=== PATIENT | male | born 1995 | race Caucasian/White ===

== ENCOUNTER 2017-01-09 12:53 | Inpatient (IN) | payer OTHER ==
--- NOTE | ~2017-01-09 | CR72 ---
[facility] A Service of [facility] & [facility] RADIOLOGY TEXT RESULTS PATIENT: DICKSON DE JESUS LOCATION: [address] : [birth year] UNIT #: [id number] AGE: [address]: Raymond Cespedes MD SEX: M ORDER DR: [id number] [facility] [address] [facility]. [place], [place] [address] [id number] I MR#: [id number] Acc #: [id number] NAME: DICKSON DE JESUS : 1995 SEX: M STUDY DATE/TIME: 01/10/2017 6:08 UNIT: [facility] ROOM: [facility] STUDY DESCRIPTION: CR Chest Single View Portable Attending Physician: Raymond Cespedes M.D. Ordering Physician: Ivy Interiano M.D. Primary Care Physician: No Primary Care Physician MEDICAL IMAGING REPORT This report is preliminary unless electronic signature is present EXAM Portable chest, 01/10/2017. HISTORY Overdose, respiratory failure, intubated, follow up infiltrates, ventilator management. FINDINGS The cardiac and mediastinal structures are stable compared with 01/09/2017. There has been no change in the position of the life support equipment. There has been an interval decrease in the bilateral infiltrates. There are no pleural effusions. No pneumothorax. IMPRESSION Interval decrease in the bilateral infiltrates compared with 01/09/2017. Dictated by... Zeke Velarde M.D. THIS IS AN ELECTRONICALLY VERIFIED REPORT Zeke Velarde M.D. at 01/11/2017 2:24 PM KRT/shoaib TD: 01/10/2017 11:17 JOB #: [id number] MEDICAL IMAGING REPORT COPY
--- NOTE | ~2017-01-09 | HP ---
Unit #: [id number] #: [id number] Patient: DICKSON DE JESUS [id number] [facility]. [place], [place] [address] [id number] I MR#: [id number] NAME: DICKSON DE JESUS ROOM: [facility] Age: 21 Sex: M Admission Date: 01/09/2017 : 1995 Attending Physician: Georgina Jackson M.D. HISTORY AND PHYSICAL CHIEF COMPLAINT Unresponsive, probable overdose. HISTORY OF PRESENT ILLNESS The patient is a 21-year-old male with a past medical history of asthma and IV drug use who presented to the emergency department for evaluation of the above. History is obtained from chart review and discussion with ER staff, as well as the patient's mother and grandparents who are at the bedside. The patient was last normal around 3 a.m. on the morning of admission. His grandfather thinks he may have heard him talking on the phone around 6. He found him unresponsive at 8:30. EMS was called. Upon arrival of EMS, he was completely unresponsive. He was given 6 mg of Narcan with no response. He was brought to the emergency department for further evaluation. Upon arrival in the emergency department, pulse and blood pressure were 150 and 103/60, respectively. He had decerebrate posturing with fixed pupils. He had no response to pain. He was intubated. Chest x-ray is showing findings concerning for aspiration. Lactic acid is 5.7. He has a creatinine of 1.8. AST and ALT are 61 and 55, respectively. He was given clindamycin in the emergency department, as well as two liters of normal saline. He is being admitted to [facility] for evaluation and further treatment. PAST MEDICAL HISTORY 1. Patient was seen at [facility] approximately one month ago for intentional overdose. He then was an inpatient at [facility]. 2. Asthma requiring hospitalization as a child. PAST SURGICAL HISTORY None. SOCIAL HISTORY The patient lives "wherever." He stays with his grandparents some, and he is at his mom's some. He smokes a half pack of cigarettes daily. He has a history of IV heroin use. 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 He has his GED. He is not currently working. FAMILY HISTORY Notable for both parents being healthy. ALLERGIES Unit #: [id number] #: [id number] Patient: DICKSON DE JESUS. HOME MEDICATIONS None. REVIEW OF SYSTEMS A complete review of systems is unobtainable from the patient due to altered mental status and current intubation. The family states that he had a court date today and had been arguing with his girlfriend. He does have a history of intentional overdose as stated above. PHYSICAL EXAMINATION VITAL SIGNS: Temperature is 101.5, pulse 150, respirations 12, and blood pressure 103/60. GENERAL: Patient is a male who is currently intubated. He is on a Versed drip. HEENT: Head is atraumatic. Mucous membranes are dry. NECK: Supple. Trachea is midline. CARDIOVASCULAR: Tachycardic in the 120s. LUNGS: Scattered rhonchi. ABDOMEN: Soft with bowel sounds present in all four quadrants. EXTREMITIES: No pedal edema. NEUROLOGIC: Patient is completely unresponsive. He initially had decerebrate posturing. He is not responding at all to pain. Pupils are fixed. PSYCHIATRIC: Unable to assess. SKIN: Scattered tattoos. DIAGNOSTIC STUDIES LABORATORY: Comprehensive metabolic panel is notable for bicarb of 21, BUN and creatinine 13 and 1.8, respectively, calcium 8, AST and ALT 61 and 55, respectively, alkaline phosphatase 105, and magnesium is 2. CK is 150. Alcohol is less than 5. Troponin is 0.18. Lactic acid 5.7. INR is 1.2. BNP 36. Complete blood count notable for a white blood cell count of 12.3. Urinalysis is notable for 3+ protein, glucose 100, and blood 1+, with 2-5 red blood cells, 10-25 white blood cells, and 1+ bacteria. IMAGING: Chest x-ray shows extensive alveolar and interstitial infiltrates. CT of the head shows nothing acute. CARDIOLOGY: EKG shows sinus tachycardia with short P-R interval and a rate of 170 beats per minute. ASSESSMENT The patient is a 21-year-old male with: 1. Heroin overdose, unknown intent. 2. Acute respiratory failure. 3. Aspiration pneumonia. The patient received clindamycin in the emergency department. 4. Sepsis. 5. Urinary tract infection. 6. Acute kidney injury. The patient's creatinine was 0.9 on June 08, 2015. It is 1.8 today. 7. Transaminitis. 8. History of asthma. 9. IV drug use. 10. Tobacco abuse. Unit #: [id number] #: [id number] Patient: DICKSON DE JESUS PLAN 1. Admit to ICU. 2. N.p.o. 3. Normal saline at 150 mL/hour. 4. Consult Dr. Interiano regarding ICU admission and vent management. 5. Blood cultures x2. 6. Sputum culture and sensitivity. 7. Procalcitonin level. 8. Clindamycin IV pending further workup. 9. DuoNebs. 10. Sepsis protocol with repeat lactic acid. 11. Serial cardiac enzymes. 12. Urine toxicology screen. 13. Continue Versed drip per sedation protocol. 14. Check magnesium level and CPK. 15. Protonix for GI prophylaxis. 16. SCDs for DVT prophylaxis. 17. Repeat labs in the morning. 18. The patient will need to be placed on a hold and have a Psychiatry consult and sitter if he is extubated. 19. I spoke with the family at bedside. All their questions were answered. The patient has a very poor prognosis. Forty (40) minutes critical care time spent in the care of this patient (12:50-1:30 p.m.). Dictated by Lisha Ward/rj TD: 01/09/2017 15:57 JOB #: [id number] HISTORY AND PHYSICAL X Georgina Jackson MD X HISTORY AND PHYSICAL
--- NOTE | ~2017-01-09 | CR72 ---
[facility] A Service of [facility] & [facility] RADIOLOGY TEXT RESULTS PATIENT: DICSKON DE JESUS LOCATION: [address] : [birth year] UNIT #: [id number] AGE: [address]: Vini Keating MD SEX: M ORDER DR: [id number] [facility] [address] [facility]. [place], [place] [address] [id number] I MR#: [id number] Acc #: [id number] NAME: DICKSON DE JESUS : 1995 SEX: M STUDY DATE/TIME: 01/14/2017 5:00 UNIT: [facility] ROOM: [facility] STUDY DESCRIPTION: CR Chest Single View Portable Attending Physician: Vini Keating M.D. Ordering Physician: Ivy Interiano M.D. Primary Care Physician: No Primary Care Physician MEDICAL IMAGING REPORT This report is preliminary unless electronic signature is present EXAM AP portable chest date 01/14/2017 05:00 HISTORY 21-year-old male respiratory failure on the ventilator with sepsis. Symptoms began 01/09/2017. COMPARISON AP portable chest 01/13/2017 FINDINGS Heart size is upper limits normal but stable. Bilateral lower lobe airspace disease with layering pleural effusions unchanged. No visible pneumothorax. ET tube, right side central line, and Dobbhoff tube each appear stable in position. No visible pneumothorax. IMPRESSION 1. Bibasilar infiltrates with probable small layering bilateral pleural effusions without significant change from one day prior. Supporting lines and tubes appear stable. Dictated by... Kristine Maradiaga M.D. THIS IS AN ELECTRONICALLY VERIFIED REPORT Kristine Maradiaga M.D. at 01/15/2017 9:59 PM JAYRO/kristin TD: 01/14/2017 23:39 JOB #: [id number] MEDICAL IMAGING REPORT COPY
--- NOTE | ~2017-01-09 | FU ---
[facility] Nutrition Therapy DATE: 01/12/17 Patient: DICKSON DE JESUS Physician: SAM Address: [address] [place] [address] Room/Bed: [address], Zip: [place] [address] Admit Date: 01/09/17 Date of : [birth year] Height: 5 8 Weight: 180 82 NUTRITION MONITORING/FOLLOW-UP: Reason: Enteral nutrition follow-up Anthropometrics: current wt: 82 kg (180 lbs) on 01/12 Labs: Glucose 162, K/Na WNL, Phos/Mg WNL on 01/10 Meds: PPI, Solu-medrol, Fentanyl, Versed, Propofol @ 21.9 ml/hr I&O's: 5985/1390, no BM yet since admission (RN believes patient a BM in route) Skin: No change, trace edema YVONNE feet Estimated Nutrition Needs: 2191-8806 kcals per day (25-30 kcals/kg admission wt) 66-80 g protein per day (0.9-1.1 g/kg admission wt) Fluids consistent with kcal needs or per MD Assessment: Chart reviewed, events noted. Patient not appropriate for wean yet, worsened CXR. Remains on the vent, Propofol added to patient's medication regimen today currently providing 578 lipid kcals. Patient has been tolerating enteral feeds at goal rate of 55 ml/hr since yesterday, RN aware rate will change now that Propofol started- RD will order new regimen. Patient not appropriate for further nutrition intervention. Previous nutrition diagnosis resolved with EN at goal, see new dx. Previous goals met with the exception of GI goal, as the patient has not had a BM since admission. See recs below. Dx: Inadequate energy intake r/t clinical condition AEB intubated, sedated, NPO status - RESOLVED New dx: Inadequate oral intake r/t clinical condition AEB intubated, sedated, need for enteral nutrition - ACTIVE Intervention: See new EN recs below Monitoring, Evaluation and Goals: SOME MET 1. EN to provide > 80% goal volume x 24 hours. 2. Labs WNL. 3. Promote regular BM's. Monitor: Per protocol, criteria to determine if above goals met [facility] Nutrition Therapy DATE: 01/12/17 Patient: DICKSON DE JESUS Physician: SAM Address: [address] [place] [address] Room/Bed: [address], Zip: [place] [address] Admit Date: 01/09/17 Date of : [birth year] Height: 5 8 Weight: 180 82 Recommendations: 1. Please decrease current enteral nutrition rate with Jevity 1.5 to new goal rate of 40 ml/hr and add 30 ml daily Prostat per tube due to the addition of Propofol, which is currently providing 578 lipid kcals. This nutrition regimen + kcals from sedation will provide 2118 total kcals, 76 g protein and 730 ml water. Suggest free water flushes of 250 ml QID or per MD. 2. Suggest checking triglycerides with next lab draw and monitor trend while on Propofol. Please add q 6 hour accucheks noting glucose of 162 md/dL. 3. Consider adding a daily bowel regimen, as the patient has not had a BM since admission. 4. If the patient is extubated advance to regular diet per WAREHOUSE EXAMINER. Status: Moderate nutrition risk Respectfully, Trixie Tierney, ANNABEL, LD [employer] [facility] cc: client file
--- NOTE | ~2017-01-09 | CR72 ---
[facility] A Service of [facility] & [facility] RADIOLOGY TEXT RESULTS PATIENT: DICKSON DE JESUS LOCATION: [address] : [birth year] UNIT #: [id number] AGE: [address]: Raymond Cespedes MD SEX: M ORDER DR: [id number] [facility] [address] [facility]. [place], [place] [address] [id number] I MR#: [id number] Acc #: [id number] NAME: DICKSON DE JESUS : 1995 SEX: M STUDY DATE/TIME: 01/13/2017 04:51 UNIT: [facility]: [facility] STUDY DESCRIPTION: CR Chest Single View Portable Attending Physician: Raymond Cespedes M.D. Ordering Physician: Ivy Interiano M.D. Primary Care Physician: No Primary Care Physician MEDICAL IMAGING REPORT This report is preliminary unless electronic signature is present EXAM Portable chest, 01/13 at 04:51. INDICATIONS Sepsis. Overdose. Ventilator patient. FINDINGS AP portable chest compared with 01/12/2017. ET tube in the mid trachea. Right IJ line in the right atrium. Feeding tube in the stomach. Heart size stable. There is stable small effusions. Bilateral infiltrates are improved suggesting improving pulmonary edema. No pneumothorax. Dictated by... Tray Angel Jr., M.D. THIS IS AN ELECTRONICALLY VERIFIED REPORT Tray Angel Jr., M.D. at 01/13/2017 12:40 PM INES/shoaib TD: 01/13/2017 10:00 JOB #: [id number] MEDICAL IMAGING REPORT COPY
--- NOTE | ~2017-01-09 | CR72 ---
[facility] A Service of [facility] & [facility] RADIOLOGY TEXT RESULTS PATIENT: DICKSON DE JESUS LOCATION: [address] : [birth year] UNIT #: [id number] AGE: [address]: Vini Keating MD SEX: M ORDER DR: [id number] [facility] [address] [facility]. [place], [place] [address] [id number] I MR#: [id number] Acc #: [id number] NAME: DICKSON DE JESUS : 1995 SEX: M STUDY DATE/TIME: 01/15/2017 4:46 UNIT: [facility] ROOM: [facility] STUDY DESCRIPTION: CR Chest Single View Portable Attending Physician: Vini Keating M.D. Ordering Physician: Sam Mendes M.D. Primary Care Physician: Primary Care Physician No MEDICAL IMAGING REPORT This report is preliminary unless electronic signature is present EXAM AP portable chest 01/15/2017 04:46 HISTORY Respiratory failure on a ventilator. Sepsis. Symptoms began 01/09/2017. COMPARISON AP portable chest 01/13/2017 FINDINGS Airspace disease in bilateral lower lobes may be slightly improved with slight improvement in layering pleural effusions. There does appear to be slight interstitial prominence in both lungs particularly in the perihilar regions which may represent a component of interstitial edema. This appears new or more conspicuous compared to yesterday's study. The ET tube, Dobbhoff tube, right IJ central line appear stable in position. No visible pneumothorax. Dictated by... Kristine Maradiaga M.D. THIS IS AN ELECTRONICALLY VERIFIED REPORT Kristine Maradiaga M.D. at 01/15/2017 9:58 PM JAYRO/feliciano TD: 01/15/2017 13:22 JOB #: [id number] MEDICAL IMAGING REPORT COPY
--- NOTE | ~2017-01-09 | EKG ---
PATIENT: DICKSON DE JESUS UNIT #: [id number] Ventricular Rate: 170 BPM Atrial Rate: 170 BPM P-R Interval: 96 ms QRS Duration: 86 ms Q-T Interval: 302 ms QTC Calculation(Bezet): 507 ms Calculated R Draper: 85 degrees Calculated T Draper: 22 degrees Diagnosis Line: Sinus tachycardia with short ID Diagnosis Line: Otherwise normal ECG Diagnosis Line: No previous ECGs available Diagnosis Line: Confirmed by TIA BLACKBURN MD ([id number]) on Diagnosis Line: 01/10/2017 4:08:45 PM INTERPRETING MD: BERE HILL
--- NOTE | ~2017-01-09 | CR72 ---
[facility] A Service of [facility] & [facility] RADIOLOGY TEXT RESULTS PATIENT: DICKSON DE JESUS LOCATION: [facility] 340-01 : 95 UNIT #: [id number] AGE: [address]: Vini Keating MD SEX: M ORDER DR: [id number] [facility] [address] [facility]. [place], [place] [address] [id number] I MR#: [id number] Acc #: [id number] NAME: DICKSON DE JESUS : 1995 SEX: M STUDY DATE/TIME: 01/16/2017 4:56 UNIT: [facility] ROOM: [facility] STUDY DESCRIPTION: CR Chest Single View Portable Attending Physician: Vini Keating M.D. Ordering Physician: Sam Mendes M.D. Primary Care Physician: Primary Care Physician No MEDICAL IMAGING REPORT This report is preliminary unless electronic signature is present EXAM AP portable chest, 01/16/2017 at 04:56 HISTORY Overdose. Respiratory failure. Aspiration pneumonia. Symptoms began 01/09/2017, found down at home. Drug abuse. Asthma. History of smoking. COMPARISON AP portable chest, 01/15/2017 FINDINGS ET tube remains in the upper thoracic trachea. Dobbhoff tube extends below the diaphragm, tip not included in the field of view. Right IJ central line extends to the right atrial level. Heart size is within normal limits. No visible pneumothorax. Probable small layering left pleural effusion with left basilar atelectasis or infiltrate unchanged. Right basilar airspace disease appears slightly improved. Right pleural effusion is nearly inconspicuous today. IMPRESSION 1. Improved aeration within the right lung with some residual atelectasis remaining. Previously described right pleural effusion is no longer visible. 2. Persistent left basilar airspace disease with small left pleural effusion unchanged. 3. Supporting lines and tubes appear stable. No visible pneumothorax. Dictated by... Kristine Maradiaga M.D. THIS IS AN ELECTRONICALLY VERIFIED REPORT Kristine Maradiaga M.D. at 01/16/2017 10:02 PM JAYRO/galileo [facility] A Service of [facility] & [facility] RADIOLOGY TEXT RESULTS PATIENT: DICKSON DE JESUS LOCATION: [facility] 340-01 : 95 UNIT #: [id number] AGE: [address]: Vini Keating MD SEX: M ORDER DR: TD: 01/16/2017 08:38 JOB #: [id number] MEDICAL IMAGING REPORT COPY
--- NOTE | ~2017-01-09 | OR ---
Unit #: [id number] #: [id number] Patient: DICKSON DE JESUS [id number] [address] [address] [id number] I MR#: [id number] NAME: DICKSON DE JESUS ROOM: [facility] Date of Procedure: 01/09/2017 Admission Date: 01/09/2017 Surgeon: Ivy Interiano M.D. : 1995 Attending Physician: Raymond Cespedes M.D. Primary Care Physician: Primary Care Physician No OPERATIVE REPORT PROCEDURE PERFORMED Bronchoscopy. INDICATIONS FOR PROCEDURE Right lower lobe mucous plugging and infiltrate. SEDATION The patient is paralyzed and sedated with propofol and fentanyl per the ICU protocol. DESCRIPTION OF PROCEDURE After obtaining informed consent, the patient had a bronchoscope introduced through the endotracheal tube. There was no significant infiltrate of the endotracheal tube. The bronchoscope was passed into the right mainstem bronchus. There was some clot and obstruction of the right lower lobe superior segment. This clot was suctioned as could be tolerated. Bronchoscope was then passed in the right upper, right middle, right lower, left upper, left lingular, left lower lobe. A BAL of Storz was performed into the left lingular lobe. Approximately 30 mL of sterile non-bacteriostatic saline were introduced, approximately 10 was return. After suctioning, the bronchoscope was removed. There were no acute complications. There were no real limitations. The patient tolerated the procedure well. Thank you very much. Please page me at [phone] if you have any questions. Dictated by... Lisha [place]/inna TD: 01/09/2017 22:55 JOB #: [id number] Unit #: [id number] #: [id number] Patient: DICKSON DE JESUS OPERATIVE REPORT X Parker Interiano MD X PROCEDURE OPERATIVE NOTE
--- NOTE | ~2017-01-09 | CR72 ---
[facility] A Service of [facility] & [facility] RADIOLOGY TEXT RESULTS PATIENT: DICKSON DE JESUS LOCATION: [address] : [birth year] UNIT #: [id number] AGE: [address]: Georgina Jackson MD SEX: M ORDER DR: [id number] [facility] [address] [facility]. [place], [place] [address] [id number] I MR#: [id number] Acc #: [id number] NAME: DICKSON DE JESUS : 1995 SEX: M STUDY DATE/TIME: 01/09/2017 12:22 UNIT: [facility] ROOM: [facility] STUDY DESCRIPTION: CR Chest Single View Portable Attending Physician: Georgina Jackson M.D. Ordering Physician: Faye Jennings M.D. Primary Care Physician: Primary Care Physician No MEDICAL IMAGING REPORT This report is preliminary unless electronic signature is present EXAM Portable chest INDICATIONS Hypoxia, follow up infiltrates and endotracheal tube. TECHNIQUE/COMPARISON Today's portal view of the chest is compared with 1 from earlier today about 2 hours ago. FINDINGS The endotracheal tube has its tip 1 cm above the nini. There seems to be developing right upper lobe atelectasis and diffuse left lung infiltrate is stable. The only change from the earlier study is that the right upper lobe is denser. Dictated by... Romaine Melara M.D. THIS IS AN ELECTRONICALLY VERIFIED REPORT Romaine Melara M.D. at 01/10/2017 7:13 AM FEL/to TD: 01/09/2017 18:55 JOB #: [id number] MEDICAL IMAGING REPORT COPY
--- NOTE | ~2017-01-09 | CO ---
Unit #: [id number] #: [id number] Patient: DICKSON BENAVIDES [id number] [address] [id number] I MR#: [id number] NAME: DICKSON BENAVIDES ROOM: 340 Age: 21 Sex: M Admission Date: 01/09/2017 : 1995 Attending Physician: Vini Keating M.D. Primary Care Physician: No Primary Care Physician Consultation Date: 01/16/2017 CONSULTATION REPORT REASON FOR CONSULTATION Opiate overdose and depression. HISTORY OF PRESENT ILLNESS Dickson Benavides is a 21-year-old male seen in ICU bed-10 on CCU2 at [facility]. Patient was lying comfortably in bed, pleasant, cooperative but mood was tearful, sad, dysphoric. Patient reported that he was upset that he took overdose of opiate. Patient seemed to have taken intentional overdose as he was feeling sad, depressed. Patient reported has a longstanding history of depression and substance abuse. Patient's mom reported that patient has received treatment in the past from [facility] for bipolar mood disorder. According to the reports, patient was treated from 06/07 to 06/13/15 for bipolar mood disorder and polysubstance abuse. Patient was tearful, sad, depressed, felt anxious, nervous, withdrawn. PAST PSYCHIATRIC HISTORY Remarkable for history of bipolar mood disorder. MEDICAL HISTORY AND MEDICATION HISTORY None except for recent overdose. Medications - Please refer to H and P. FAMILY HISTORY/SOCIAL HISTORY The patient has a good support system. No history of any abuse. History of multiple substance abuse. Drug of choice - heroin, amphetamines. Urine drug screen was positive for amphetamine and opiates. REVIEW OF SYSTEMS Complete review of systems is remarkable. MENTAL STATUS EXAMINATION GENERAL APPEARANCE: Patient dressed casually, lying comfortably in bed. Tearful, anxious, nervous. Attention span and concentration fair. Speech - slow in volume. Oriented in time, place and person. Mood and affect was labile. Thought process circumstantial. Thought content - patient still having suicidal ideation, mood lability but no plan. Denied any psychotic symptom. Recent and remote memory poor. Language - able to name object, repeat phrases. Fund of knowledge fair. Insight and judgment fair to slightly impaired. DIAGNOSIS Unit #: [id number] #: [id number] Patient: DICKSON BENAVIDES PSYCHIATRIC 1. Bipolar mood disorder, NOS - F31.89. 2. Opiate use disorder, severe - F11.20. 3. Amphetamine use disorder, severe - F15.20. SECONDARY DIAGNOSIS Deferred. MEDICAL DIAGNOSIS Recent overdose. Please refer to H and P. STRESSORS Psychosocial stressor. ASSESSMENT/PLAN 1. Supportive psychotherapy and psychoeducation provided to patient and the family. 2. Advised to continue with the current treatment with the plan to transfer patient to [facility] for inpatient psychiatric stabilization. Please feel free to call if any questions. Telephone number [phone]. Dictated by... Lisha Reina/felicia TD: 01/17/2017 10:37 JOB #: [id number] CONSULTATION REPORT X Jean Carlos Bo MD X CONSULTATION REPORT
--- NOTE | ~2017-01-09 | CT71 ---
[facility] A Service of [facility] & [facility] RADIOLOGY TEXT RESULTS PATIENT: DICKSON DE JESUS LOCATION: [address] : 95 UNIT #: [id number] AGE: [address]: Georgina Jackson MD SEX: M ORDER DR: [id number] [facility]. [place], [place] [address] [id number] I MR#: [id number] Acc #: [id number] NAME: DICKSON DE JESUS : 1995 SEX: M STUDY DATE/TIME: 01/09/2017 12:00 UNIT: [facility] ROOM: [facility] STUDY DESCRIPTION: CT Head Wo Contrast Attending Physician: Georgina Jackson M.D. Ordering Physician: Faye Jennings M.D. Primary Care Physician: Primary Care Physician No MEDICAL IMAGING REPORT This report is preliminary unless electronic signature is present EXAM CT scan of the head without contrast INDICATIONS Patient currently unresponsive, probable drug overdose TECHNIQUE Unenhanced images were obtained of the brain. This CT exam was performed with one or more of the following radiation dose reduction techniques: automatic exposure control, adjustment of mA and/or kV according to patient size, and iterative reconstruction. FINDINGS There is small amount of fluid in the left maxillary sinus. The ventricles and subarachnoid spaces are normal and there are no masses or extraaxial fluid collections or hemorrhage. IMPRESSION 1. Minimal fluid in the left maxillary sinus. 2. Otherwise, normal. Dictated by... Romaine Melara M.D. THIS IS AN ELECTRONICALLY VERIFIED REPORT Romaine Melara M.D. at 01/10/2017 7:13 AM FEL/to TD: 01/09/2017 18:25 JOB #: [id number] MEDICAL IMAGING REPORT COPY
--- NOTE | ~2017-01-09 | CR72 ---
[facility] A Service of [facility] RADIOLOGY TEXT RESULTS PATIENT: DICKSON DE JESUS LOCATION: [facility] CICCU210 : 95 UNIT #: [id number] AGE: [address]: Raymond Cespedes MD SEX: M ORDER DR: [id number] [place] [id number] [facility]. [place], [place] [address] [id number] I MR#: [id number] Acc #: [id number] NAME: DICKSON DE JESUS : 1995 SEX: M STUDY DATE/TIME: 01/09/2017 12:24 UNIT: [facility] ROOM: [facility] STUDY DESCRIPTION: CR Chest Single View Portable Attending Physician: Georgina Jackson M.D. Ordering Physician: Faye Jennings M.D. Primary Care Physician: Primary Care Physician No MEDICAL IMAGING REPORT This report is preliminary unless electronic signature is present EXAM Chest portable, 01/09/2017 1224 hours. CLINICAL HISTORY 21-year-old who suffered an overdose today requiring intubation. Repositioning of endotracheal tube. COMPARISON 01/09/2017 1222 hours. FINDINGS Portable chest demonstrates repositioning of endotracheal tube with tip now 4.4. cm above the nini. There is diffuse airspace change in the left lung and right upper lung likely representing edema or pneumonia. No effusion or pneumothorax. There is persistent gaseous distention of the stomach. IMPRESSION 1. Interval adjustment of the endotracheal tube with tip now lying 4.4 cm above the nini. 2. Stable diffuse airspace change in the left lung and the right upper lobe. No effusion or pneumothorax. 3. Persistent gaseous distention of the proximal stomach is noted. Dictated by... Guerline Galvan M.D. THIS IS AN ELECTRONICALLY VERIFIED REPORT Guerline Galvan M.D. at 01/10/2017 9:26 AM Alla [facility] A Service [facility] RADIOLOGY TEXT RESULTS PATIENT: DICKSON DE JESUS [facility] UNIT #: [id number] AGE: [address]: Raymond Cespedes MD SEX: M ORDER DR: TD: 01/09/2017 20:38 JOB #: [id number] MEDICAL IMAGING REPORT COPY
--- NOTE | ~2017-01-09 | DS ---
Unit #: [id number] #: [id number] Patient: DICKSON DE JESUS [id number] [address] [address] [id number] I MR#: [id number] NAME: DICKSON DE JESUS ROOM: 340 Age: 21 Sex: M Admission Date: 01/09/2017 : 1995 Discharge Date: 01/17/2017 Attending Physician: Vini Keating M.D. Primary Care Physician: No Primary Care Physician DISCHARGE SUMMARY REASON FOR HOSPITAL ADMISSION Acute hypoxic respiratory failure/heroin overdose. HISTORY OF PRESENT ILLNESS/HOSPITAL COURSE The patient is a 21-year-old male with a prior history of IV drug abuse who off and on has had difficulty with IV drugs and was actually about to undergo rehab through family members when family members came downstairs to evaluate and check the patient. He was found to be down. EMS was subsequently consulted. The patient was brought to the hospital. He was intubated en route for airway protection. Through is ICU course consultation was placed to Dr. Interiano of pulmonary service. He was gradually extubated. He was placed on appropriate IV antibiotics for consideration for possible aspiration pneumonia in light of history. It was noted that he did have septic shock/sepsis on admission through appropriate criteria. He was gradually weaned off the ventilator, placed on telemetry floor. In regard to his IV drug abuse, he does have a prior history of systolic heart failure, did undergo a two-D echocardiogram, which did reveal an ejection fraction of 45% to 50% while he was here. No acute vegetations were seen. Blood cultures were, otherwise, negative. There was no bacterial growth. At this point in time his antibiotics have been transitioned to p.o. clindamycin. He is currently breathing on room air. There is certainly concern for possible suicidal attempt. Once he was placed off the ventilator, he was placed on a 72-hour hold. Consultation was placed to Dr. Bo who felt as though, once he is medically stable, he may be [facility]. At this point, he is currently medically stable. Overall, his long-term prognosis is guarded secondary to his lack of insight into his ongoing IV drug abuse. FINAL DISCHARGE DIAGNOSES 1. Acute hypoxic respiratory failure. 2. Drug overdose. 3. Suicidal attempt. 4. Septic shock on admission. 5. Presumed aspiration pneumonia. 6. Acute on chronic systolic heart failure. 7. Ongoing IV drug abuse. 8. Poor insight into medical condition. Unit #: [id number] #: [id number] Patient: DICKSON DE JESUS FINAL DISCHARGE MEDICATIONS Tylenol 650 mg p.o. q.6 p.r.n. DISCHARGE CONDITION Stable. DISCHARGE DISPOSITION OLOP. Dictated by... Lisha Jenkins/clayton TD: 01/17/2017 14:39 JOB #: [id number] DISCHARGE SUMMARY X Vini Keating MD X DISCHARGE SUMMARY
--- NOTE | ~2017-01-09 | CR7 ---
[facility] A Service of [facility] & [facility] RADIOLOGY TEXT RESULTS PATIENT: DICKSON DE JESUS LOCATION: [address] : 95 UNIT #: [id number] AGE: [address]: Raymond Cespedes MD SEX: M ORDER DR: [id number] [facility] [address] [facility]. [place], [place] [address] [id number] I MR#: [id number] Acc #: [id number] NAME: DICKSON DE JESUS : 1995 SEX: M STUDY DATE/TIME: 01/12/2017 18:29 UNIT: [facility] ROOM: [facility] STUDY DESCRIPTION: CR Abdomen Single AP View Attending Physician: Raymond Cespedes M.D. Ordering Physician: Raymond Cespedes M.D. Primary Care Physician: Primary Care Physician No MEDICAL IMAGING REPORT This report is preliminary unless electronic signature is present EXAM AP abdomen 01/12/2017 at 18:29 HISTORY Dobbhoff placement. COMPARISON AP abdomen 01/10/2017. FINDINGS Radiopaque tip of the Dobbhoff tube extends into the proximal gastric body. It is similarly positioned to the 01/10/2017 examination. Dictated by... Kristine Maradiaga M.D. THIS IS AN ELECTRONICALLY VERIFIED REPORT Kristine Maradiaga M.D. at 01/13/2017 10:07 PM JAYRO/jonnie TD: 01/13/2017 07:43 JOB #: [id number] MEDICAL IMAGING REPORT COPY
--- NOTE | ~2017-01-09 | CR72 ---
[facility] A Service of [facility] & [facility] RADIOLOGY TEXT RESULTS PATIENT: DICKSON DE JESUS LOCATION: [address] : 95 UNIT #: [id number] AGE: [address]: Raymond Cespedes MD SEX: M ORDER DR: [id number] [facility] [address] [facility]. [place], [place] [address] [id number] I MR#: [id number] Acc #: [id number] NAME: DICKSON DE JESUS : 1995 SEX: M STUDY DATE/TIME: 01/11/2017 02:36 UNIT: [facility] ROOM: [facility] STUDY DESCRIPTION: CR Chest Single View Portable Attending Physician: Raymond Cespedes M.D. Ordering Physician: Ivy Interiano M.D. Primary Care Physician: Primary Care Physician No MEDICAL IMAGING REPORT This report is preliminary unless electronic signature is present EXAM Portable chest, 01/11 at 02:36 INDICATION Overdose. Respiratory failure. Sepsis. FINDINGS AP portable chest is compared with 01/10/2017. ET tube tip is about 6.0 cm above the nini. Right IJ line is in the right atrium. Feeding tube in the gastric body. Heart size stable. Right lung is clear. There is continued pneumonia in the left xor-ow-xmrhx lung. No pneumothorax. Dictated by... Tray Angel Jr., M.D. THIS IS AN ELECTRONICALLY VERIFIED REPORT Tray Angel Jr., M.D. at 01/11/2017 9:16 PM INES/galileo TD: 01/11/2017 10:17 JOB #: [id number] MEDICAL IMAGING REPORT COPY
--- NOTE | ~2017-01-09 | CR71 ---
[facility] A Service of [facility] & [facility] RADIOLOGY TEXT RESULTS PATIENT: DICKSON DE JESUS LOCATION: [address] : 95 UNIT #: [id number] AGE: [address]: Raymond Cespedes MD SEX: M ORDER DR: [id number] [facility] [address] [facility]. [place], [place] [address] [id number] I MR#: [id number] Acc #: [id number] NAME: DICKSON DE JESUS : 1995 SEX: M STUDY DATE/TIME: 01/12/2017 15:16 UNIT: [facility] ROOM: [facility] STUDY DESCRIPTION: CR Chest Single View Attending Physician: Raymond Cespedes M.D. Ordering Physician: Ivy Interiano M.D. Primary Care Physician: Primary Care Physician No MEDICAL IMAGING REPORT This report is preliminary unless electronic signature is present EXAM Portable chest x-ray, 01/12/2017 HISTORY Patient de-satting. FINDINGS AP radiograph of chest presented. Comparison 01/12/2017 0502 hours. Endotracheal tube unchanged. Flexible feeding tube unchanged, terminating in mid stomach. Right internal jugular-approach central venous catheter terminates in mid right atrium. For placement entirely within superior vena cava, it could be retracted approximately 4 cm and re-assessed radiographically. Stable mild cardiac enlargement. Lung volumes low. Bronchovascular crowding. Significantly increased peribronchial and interstitial densities extending from the central lung zones toward the peripherally bilaterally and symmetrically. Airspace disease bilateral lower lung zones, more pronounced on left than right. Small, bilateral pleural effusions. Airspace densities have also increased. The pleural effusions are probably stable. Overall constellation of findings favors moderate to moderate-severe pulmonary edema, increased from prior study, with interstitial airspace and pleural space components. Bilateral pneumonia with parapneumonic effusions felt less likely. No pneumothorax. Visualized upper abdomen shows no acute abnormality. Dictated by... Ben Landa M.D. THIS IS AN ELECTRONICALLY VERIFIED REPORT Ben Landa M.D. at 01/13/2017 4:18 PM VADIM/lefty [facility] A Service of [facility] & [facility] RADIOLOGY TEXT RESULTS PATIENT: DICKSON DE JESUS LOCATION: CIC2 CICCU2-10 : 95 UNIT #: [id number] AGE: [address]: Raymond Cespedes MD SEX: M ORDER DR: TD: 01/12/2017 21:17 JOB #: [id number] MEDICAL IMAGING REPORT COPY
--- NOTE | ~2017-01-09 | CR72 ---
[facility] A Service of [facility] RADIOLOGY TEXT RESULTS PATIENT: DICKSON DE JESUS LOCATION: [address] : 95 UNIT #: [id number] AGE: [address]: Georgina Jackson MD SEX: M ORDER DR: [id number] [place] [id number] [facility]. [place], [place] [address] [id number] I MR#: [id number] Acc #: [id number] NAME: DICKSON DE JESUS : 1995 SEX: M STUDY DATE/TIME: 01/09/2017 10:32 UNIT: [facility] ROOM: [facility] STUDY DESCRIPTION: CR Chest Single View Portable Attending Physician: Georgina Jackson M.D. Ordering Physician: Faye Jennings M.D. Primary Care Physician: Primary Care Physician No MEDICAL IMAGING REPORT This report is preliminary unless electronic signature is present EXAM Frontal chest 01/09/2017 INDICATION Overdose. Status post intubation. Heroin overdose on the ventilator. Symptoms began now. ET tube placement. TECHNIQUE Frontal chest. No comparisons. FINDINGS ET tube tip in good position approximately 3 cm above the level of the nini. Cardiac silhouette unremarkable. Extensive interstitial and alveolar infiltrates are present in the upper lung zones bilaterally left greater than right. There is extension into the mid and lower lung zone on the left. Imaging features are most characteristic of multifocal pneumonia and may represent aspiration pneumonia given the provided clinical history. Follow up to clearing recommended after appropriate therapy. No effusion. No pneumothorax. CP angle on the left excluded from view. IMPRESSION 1. Extensive interstitial and alveolar infiltrates bilaterally with a left-sided predominance. These are suspicious for aspiration pneumonia given the provided history. 2. ET tube tip in good position approximately 3 cm above the level of the nini. STAT * RESULT [facility] A Service of [facility] RADIOLOGY TEXT RESULTS PATIENT: DICKSON DE JESUS LOCATION: [address] : 95 UNIT #: [id number] AGE: [address]: Georgina Jackson MD SEX: M ORDER DR: Dictated by... Sarbjit Murdock M.D. THIS IS AN ELECTRONICALLY VERIFIED REPORT Sarbjit Murdock M.D. at 01/09/2017 5:34 PM ANNIE/jonnie TD: 01/09/2017 11:02 JOB #: [id number] MEDICAL IMAGING REPORT COPY
--- NOTE | ~2017-01-09 | CR7 ---
[facility] A Service of [facility] & [facility] RADIOLOGY TEXT RESULTS PATIENT: DICKSON DE JESUS LOCATION: [address] : 95 UNIT #: [id number] AGE: [address]: Raymond Cespedes MD SEX: M ORDER DR: [id number] [place], [place] [address] [id number] I MR#: [id number] Acc #: [id number] NAME: DICKSON DE JESUS : 1995 SEX: M STUDY DATE/TIME: 01/10/2017 15:00 UNIT: [facility] ROOM: [facility] STUDY DESCRIPTION: CR Abdomen Single AP View Attending Physician: Raymond Cespedes M.D. Ordering Physician: Ivy Interiano M.D. Primary Care Physician: Primary Care Physician No MEDICAL IMAGING REPORT This report is preliminary unless electronic signature is present EXAM AP abdomen. DATE 01/10/2017 at 15:00 HISTORY Dobbhoff placement today. FINDINGS The radiopaque tip of the Dobbhoff tube extends into the proximal gastric body. Dictated by... Kristine Maradiaga M.D. THIS IS AN ELECTRONICALLY VERIFIED REPORT Kristine Maradiaga M.D. at 01/11/2017 10:00 AM JAYRO/dorothy TD: 01/10/2017 23:05 JOB #: [id number] MEDICAL IMAGING REPORT COPY
--- NOTE | ~2017-01-09 | CO ---
Unit #: [id number] #: [id number] Patient: DICKSON DE JESUS [id number] [facility]. [place], [place] [address] [id number] I MR#: [id number] NAME: DICKSON DE JESUS ROOM: CIC2 Age: 21 Sex: M Admission Date: 01/09/2017 : 1995 Attending Physician: Raymond Cespedes M.D. CONSULTATION REPORT HISTORY OF PRESENT ILLNESS Mr. Coleman is a young 21-year-old gentleman with a history of bipolar disorder and polysubstance abuse, who was last seen normal approximately 3:00 a.m. this morning. History is obtained mostly from the chart and ER doctor since no family is present and the patient is sedated and intubated. He was found down by family. EMS was called. The patient has very difficult intubation at the ER. He had a Combitube in a route. The patient was found to be positive for amphetamines, narcotics, and opiates. The patient became severely hypotensive. The left side of the lung appeared significantly iqra out. The patient has been having refractory hypoxia. No history of prior illness or sickness. No history of long car trips. The patient is being monitored in the ICU. We have been asked to see monitor for ICU issues management. REVIEW OF SYSTEMS Unobtainable because the patient is on the vent in ICU. PAST MEDICAL HISTORY Significant for questionable history of asthma and long history of polysubstance abuse. PAST SURGICAL HISTORY Negative. ALLERGIES The patient has no known drug allergies. MEDICATIONS Unknown at time of arrival. It is unclear what medications the patient has when family returns. We will try to ascertain if he is on any medications chronically. SOCIAL HISTORY The patient is single. He has been recently unemployed. The patient is an active smoker. Has a history of recurrent polysubstance abuse including a possible suicide attempt 1 to 2 months prior after which he was hospitalized at [place]. PHYSICAL EXAMINATION VITAL SIGNS: T-current 100.2, pulse 144, blood pressure 98/62 on 1.5 of Levophed, respiratory rate 18, in's and out's not measured. HEENT: Head is normocephalic and atraumatic. Pupils are equally round. The patient is orotracheally intubated. NECK: Shows no significant accessary muscle use. There are no Unit #: [id number] #: [id number] Patient: DICKSON DE JESUS significant lymphadenopathy. CHEST: Shows decreased breath sounds with rhonchi bilaterally. CARDIOVASCULAR: Regular rate. No gallop. ABDOMEN: Soft, nontender, and nondistended. EXTREMITIES: Shows trace to no significant edema. Peripheral pulses are difficult to palpate. DIAGNOSTIC STUDIES LABORATORY RESULTS: White count 20, hemoglobin 16, platelets of 344. BUN and creatinine are 13/1.8. Bicarb 21. Urine shows wbc's and leukocyte esterase. Tox screen positive for amphetamines and opiates. Blood gas; 7.419, 48.8, and 63.3. Troponin is 0.25. ASSESSMENT AND PLAN 1. Respiratory failure. This is likely secondary to narcotic intoxication. 2. Hypotension. The patient likely has significant aspiration in systemic inflammatory response syndrome, this may be considered sepsis, although we do not have a primary source of the infection. The patient required pressors and IV fluid supplementation to continue. 3. Hypoxia. The patient is likely having acute respiratory distress syndrome/acute lung injury. We will be more aggressive with fluid resuscitation at the beginning and then taper off quickly. 4. Renal insufficiency. The patient required fluid resuscitation. Some of this is probably acute tubular necrosis, but some of it may be prerenal issues. 5. GI. The patient is going to be low-wall suction as he has shxp-sv-jozcfgxo amount of bilious emesis. 6. Severe metabolic acidosis. This is likely secondary to hypoperfusion. 7. Cardiogenic versus noncardiogenic shock. We are going to get an echo to see if the cytokine storm has causing decreased ejection fraction and the patient might benefit from dobutamine or dopamine. 8. Prophylaxis. The patient is on PPI and Lovenox. Thank you very much for this consult and allowing us to participate in the care of this patient. Please page me at [phone] if you have any questions. Dictated by... Ivy Interiano M.D. Mansoor TD: 01/10/2017 02:10 JOB #: [id number] CONSULTATION REPORT X Parker Interiano MD X CONSULTATION REPORT
--- NOTE | ~2017-01-09 | CR72 ---
[facility] A Service of [facility] RADIOLOGY TEXT RESULTS PATIENT: DICKSON D EJESUS LOCATION: [address] : 95 UNIT #: [id number] AGE: [address]: Raymond Cespedes MD SEX: M ORDER DR: [id number] [facility] [address] [facility]. [place], [place] [address] [id number] I MR#: [id number] Acc #: [id number] NAME: DICKSON DE JESUS : 1995 SEX: M STUDY DATE/TIME: 01/12/2017 05:02 UNIT: [facility] ROOM: [facility] STUDY DESCRIPTION: CR Chest Single View Portable Attending Physician: Raymond Cespedes M.D. Ordering Physician: Parker Interiano Primary Care Physician: Primary Care Physician No MEDICAL IMAGING REPORT This report is preliminary unless electronic signature is present EXAM Portable chest 01/12 at 05:02 INDICATIONS Overdose. Respiratory failure. Sepsis. FINDINGS AP portable chest is compared with 01/11/2017. ET tube mid trachea. Right-side central venous catheter in the right atrium. Feeding tube in the stomach. Heart size stable. There are worsening bilateral pleural effusions and bibasilar consolidations which presumably reflect pneumonia. No pneumothorax. Dictated by... Tray Angel Jr., M.D. THIS IS AN ELECTRONICALLY VERIFIED REPORT Tray Angel Jr., M.D. at 01/12/2017 10:03 PM INES/feliciano TD: 01/12/2017 08:33 JOB #: [id number] MEDICAL IMAGING REPORT COPY
--- NOTE | ~2017-01-09 | A ---
[facility] Nutrition Therapy DATE: 01/10/17 Patient: DICKSON DE JESUS Physician: SAM Address: [address] [place] [address] Room/Bed: [address], Zip: [place] [address] Admit Date: 01/09/17 Date of : 95 Height: 5 8 Weight: 171 78 NUTRITIONAL ASSESSMENT: REASON: Seen due to NPO status in ICU, intubated Admitting Dx: 21 y/o male admitted after heroin OD PMH: Asthma, IV drug abuse with intentional OD, 1/2 ppd smoker, Bipolar disorder Anthropometrics: Ht: 68", admission wt: 73 kg (160 lbs), current wt: 171 lbs, BMI: 24 Labs: Glucose 168, AST 50, ALT 46 Meds: Clindamycin (IV), PPI, Levophed, Fentanyl, Versed, Solu-Medrol I/O & Bowel function: LBM unknown, abdomen distended, hypoactive bowel sounds, NGT to LWS Skin Integrity: Redness coccyx, no edema Estimated Nutrition Needs: 7053-1292 kcals per day (25-30 kcals/kg admission wt) 66-80 g protein per day (0.9-1.1 g/kg admission wt) Fluids consistent with kcal needs or per MD Assessment: Chart reviewed, events noted. See admission dx and PMH as stated above. Patient also has a history at [facility] and [facility], is currently unemployed and has been living "here and there," sometimes stays with mother or grandmother. Has previous history of intentional OD. The patient is currently intubated and sedated, moving all extremities, following simple commands and arouses on sedation. Currently has NGT to LWS. See RD recs below, will follow hospital course. Patient is inappropriate for interview at this time. Dx: Inadequate energy intake r/t clinical condition AEB intubated, sedated, NPO. Intervention: EN recs as stated below vs PO diet if extubated Monitoring, Evaluation and Goals: 1. Nutrition support consistent with estimated needs vs tolerance of diet advancement if extubated. 2. Labs WNL (glucose, AST, ALT). 3. Promote regular bowel function. Monitor: Per protocol, criteria to determine if above goals met [facility] Nutrition Therapy DATE: 01/10/17 Patient: DICKSON DE JESUS Physician: SAM Address: [address] [place] [address] Room/Bed: [address], Zip: [place] [address] Admit Date: 01/09/17 Date of : 95 Height: 5 8 Weight: 171 78 Recommendations: 1. If the patient is to remain intubated for > 48 hours suggest starting enteral feeds once medically appropriate. Recommend Jevity 1.5 with start rate of 20 ml/hr and increase by 10 ml q 6 hours until goal rate of 55 ml/hr is reached, to provide 1980 kcals, 84 g protein and 1003 ml water. Once at goal rate add free water flushes per MD, suggest 250 ml QID. 2. If extubated advance to regular diet as tolerated. RD will follow hospital course Severe nutrition risk Respectfully, Trixie Tierney, ANNABEL, LD [employer] [facility] cc: client file
--- NOTE | ~2017-01-09 | CR72 ---
[facility] A Service of [facility] RADIOLOGY TEXT RESULTS PATIENT: DICKSON DE JESUS LOCATION: [address] : 95 UNIT #: [id number] AGE: [address]: Raymond Cespedes MD SEX: M ORDER DR: [id number] [facility] [address] [facility]. [place], [place] [address] [id number] I MR#: [id number] Acc #: [id number] NAME: DICKSON DE JESUS : 1995 SEX: M STUDY DATE/TIME: 01/09/2017 16:08 UNIT: [facility] ROOM: [facility] STUDY DESCRIPTION: CR Chest Single View Portable Attending Physician: Raymond Cespedes M.D. Ordering Physician: Romel Roach M.D. Primary Care Physician: Primary Care Physician No MEDICAL IMAGING REPORT This report is preliminary unless electronic signature is present EXAM Portable chest x-ray 01/09/2017 HISTORY Line placement on vent. Heroin overdose. FINDINGS AP radiograph of the chest is presented. Comparison 01/09/2017 at 1224 hours. Endotracheal tube tip projects 6.9 cm above nini at T2 inferior endplate near the thoracic inlet. It appears more proximal than on prior examination when it terminated about 4.4 cm above nini. For placement in mid thoracic trachea, advancement into the trachea by about 2-3 cm with radiographic reassessment is strongly recommended. There is a right internal jugular central venous catheter which terminates in the upper right atrium. For placement entirely within the superior vena cava, it could be withdrawn about 3 cm and reassessed radiographically. There has been placement of a enteric tube. The enteric tube side port terminates immediately above the diaphragm. For placement of side port in vka-hd-qhuadl stomach, the tube could be advanced 10-15 cm and reassessed. Heart is normal in size. Lungs are better inflated than on prior examination. Extensive airspace disease throughout the left lung. It appears slightly less pronounced overall but this is favored to be a reflection of improved overall aeration and not a significant decrease in the overall airspace disease. Extensive airspace disease in the right upper lobe with much less involvement of the right lower lobe. Again appearance on the right shows improved aeration and the airspace disease appears less dense but I favor that this is a reflection of volume improvement in the lungs and not true improvement in pulmonary disease. Overall appearance suggests severe extensive bilateral pneumonia, left greater than right. In light of the patient's stated history, correlate with any clinical concern for aspiration. Continued followup to radiographic resolution is recommended. There is no pleural effusion or pneumothorax. [facility] A Service of [facility] RADIOLOGY TEXT RESULTS PATIENT: DICKSON DE JESUS LOCATION: [address] : 95 UNIT #: [id number] AGE: [address]: Raymond Cespedes MD SEX: M ORDER DR: Dictated by... Ben Landa M.D. THIS IS AN ELECTRONICALLY VERIFIED REPORT Ben Landa M.D. at 01/10/2017 5:26 PM VADIM/jonnie TD: 01/10/2017 08:15 JOB #: [id number] MEDICAL IMAGING REPORT COPY
--- NOTE | ~2017-01-09 | TOC ---
Unit #: [id number] #: [id number] Patient: DICKSON DE JESUS [id number] [address] [address] [id number] I MR#: [id number] NAME: DICKSON DE JESUS ROOM: [facility] Age: 21 Sex: M Admission Date: 01/09/2017 : 1995 Attending Physician: Raymond Cespedes M.D. Primary Care Physician: No Primary Care Physician TRANSFER OF CARE SUMMARY PRINCIPAL DIAGNOSES 1. Acute hypoxic respiratory failure. 2. Septic shock. 3. Aspiration pneumonia. 4. Acute systolic heart failure. 5. Drug abuse. 6. Acute kidney injury. HOSPITAL COURSE The patient is a 21-year-old male who was found down at home. It is unclear how long the patient was down, but was completely unresponsive when found by EMS. He was thought to have decerebrate posturing and was noted to have fixed pupils upon presentation but was noted to have a pulse and blood pressure of 150 and 103/60 respectively. Chest x-ray showed aspiration. Initial lactic acid was 5.7. The patient was started on IV antibiotics and was, in addition, started on fluids for acute kidney injury. The patient's tox screen was positive for amphetamines and opiates. Pulmonary consult was obtained and the patient was admitted to the ICU and mechanical ventilation was continued. The patient improved well. He was awake and alert on the ventilator but unable to wean by day two. His septic shock resolved with fluids and antibiotics. He does continue to be on antibiotics for an aspiration pneumonia with treatment directed toward methicillin-sensitive Staphylococcus aureus which has grown in cultures. Given his drug abuse and his being found down at home, a 2D echo was performed and showed slightly reduced ejection fraction of 45% to 50%. At the time of this dictation, the patient does continue to be awake and alert on the ventilator. Ongoing attempts to wean are underway. The remainder of the discharge summary will be dictated by my discharging colleague. Dictated by... Raymond Cespedes M.D. [facility]/ Unit #: [id number] #: [id number] Patient: DICKSON DE JESUS TD: 01/13/2017 14:39 JOB #: [id number] TRANSFER OF CARE SUMMARY X Raymond Cespedes MD TRANSFER OF CARE SUMMARY
[2017-01-09 10:29] LABS: ARTERIAL BLD GAS O2 SATURATION 92.6 % (90.0-100.0); ARTERIAL BLOOD GAS CARBOXY HB 0.4 %sat (0.0-9.0); ARTERIAL BLOOD GAS HCO3 16.4 mmol/L; ARTERIAL BLOOD GAS MET HB 0.6 %sat (0.0-2.0); ARTERIAL BLOOD GAS PCO2 40.6 mmHg (35.0-45.0); ARTERIAL BLOOD GAS pH 7.216 (7.350-7.450)
[2017-01-09 10:37] LABS: POC - CKMB 3.5 ng/mL (0.0-7.9); POC - TROPONIN 0.18 ng/mL (<=0.05)
[2017-01-09 10:57] LABS: BASOPHIL% 0.2 % (0-2.5); DIFF IND YES; EOSINOPHIL% 0.1 % (0.0-7.0); HEMATOCRIT 48.3 % (38.0-50.0); HEMOGLOBIN 16.4 gm/dL (13.0-16.0); LYMPHOCYTE# 2.1 X10e3 (1.0-3.5); LYMPHOCYTE% 10.2 % (17.0-45.0); MEAN CORPUSCULAR HEMOGLOBIN 29.9 PG (28-34); MEAN PLATELET VOLUME 6.6 FL (6.5-11.5); MONOCYTE# 1.6 X10e3 (0-1.0); MONOCYTE% 7.7 % (3.0-12.0); NEUTROPHIL# 16.6 X10e3 (1.5-7.1); NEUTROPHIL% 81.8 % (40-75); PLATELET COUNT 344 X10e3 (140-420); RED BLOOD COUNT 5.49 X10e (3.90-5.60); RED CELL DISTRIBUTION WIDTH 12.8 % (11.0-15.5); WHITE BLOOD COUNT 20.3 X10e3 (4.0-10.5)
[2017-01-09 10:59] LABS: ALBUMIN SERUM 3.7 g/dL (3.5-5.0); ALKALINE PHOSPHATASE 105 U/L (32-92); ALT (SGPT) 55 U/L (10-40); AST (SGOT) 61 U/L (10-42); BILIRUBIN, DIRECT 0.3 mg/dL (0.0-0.2); BILIRUBIN,INDIRECT 0.7 mg/dL (0.0-0.9); BLOOD UREA NITROGEN 13 mg/dL (9-23); BUN/CREATININE RATIO 7.22; CARBON DIOXIDE 21 mmol/L (22-31); CHLORIDE 104 mmol/L (100-111); CPK (CREATINE PHOSPHOKINASE) 150 IU/L (36-174); CREATININE SERUM 1.8 mg/dL (0.6-1.4); GLOM FILT RATE Estimated 50.9 mL/min (>60); GLUCOSE FASTING 95 mg/dL (70-110); POTASSIUM 4.1 mmol/L (3.5-5.1); SODIUM 137 mmol/L (135-145)
[2017-01-09 11:04] LABS: INR 1.2; PARTIAL THROMBOPLASTIN TIME 28.9 SECONDS (23.5-31.3); PROTHROMBIN TIME (PATIENT) 12.7 SECONDS (9.6-11.5)
[2017-01-09 11:08] LABS: ALCOHOL BLOOD <5 mg/dL (0)
[2017-01-09 11:20] LABS: URINE SOURCE CLEAN CATCH
[2017-01-09 11:33] LABS: URINE APPEARANCE TURBID; URINE BILIRUBIN NEG (NEG); URINE BLOOD 1+ (NEG); URINE COLOR DK YELLOW; URINE GLUCOSE 100 MG/DL (NEG); URINE KETONE NEG (NEG); URINE LEUKOCYTE ESTERASE NEG (NEG); URINE NITRATE NEG (NEG); URINE PROTEIN 3+ (NEG); URINE SPECIFIC GRAVITY 1.018 (1.003-1.035)
[2017-01-09 11:37] LABS: CULTURE INDICATED? YES; URINE BACTERIA AUWI 1+ (NEGATIVE)
[2017-01-09 11:49] LABS: PLATELET ESTIMATE NORMAL (NORMAL); RBC NORMAL YES
[2017-01-09 12:01] LABS: URINE SQUAMOUS EPITHELIAL CELL OCCAS /[HPF]
[2017-01-09 12:02] LABS: URINE AMORPHOUS SEDIMENT AMORP URATES
[2017-01-09 13:15] LABS: ARTERIAL BLOOD GAS ALLEN TEST NORMAL; ARTERIAL BLOOD GAS ART SITE RIGHT RADIAL; ARTERIAL BLOOD GAS DELIVERY VENT; ARTERIAL BLOOD GAS PO2 70.5 mmHg (80.0-100); ARTERIAL BLOOD GAS VENT MODE A/C; ARTERIAL DRAW? YES
[2017-01-09 13:59] LABS: POC - CKMB 9.2 ng/mL (0.0-7.9); POC - TROPONIN 0.25 ng/mL (<=0.05)
[2017-01-09 14:24] LABS: ARTERIAL BLD GAS O2 SATURATION 89.3 % (90.0-100.0); ARTERIAL BLOOD GAS CARBOXY HB 0.3 %sat (0.0-9.0); ARTERIAL BLOOD GAS HCO3 18.9 mmol/L; ARTERIAL BLOOD GAS MET HB 0.5 %sat (0.0-2.0); ARTERIAL BLOOD GAS PCO2 48.8 mmHg (35.0-45.0)
[2017-01-09 14:26] LABS: ARTERIAL BLOOD GAS ALLEN TEST NORMAL; ARTERIAL BLOOD GAS ART SITE RIGHT RADIAL; ARTERIAL BLOOD GAS DELIVERY VENT; ARTERIAL BLOOD GAS PO2 63.3 mmHg (80.0-100); ARTERIAL BLOOD GAS VENT MODE AC; ARTERIAL BLOOD GAS pH 7.197 (7.350-7.450); ARTERIAL DRAW? YES
[2017-01-09 14:59] LABS: AMPHETAMINE POS (NEG); BARBITURATES NEG (NEG); BENZODIAZEPINES NEG (NEG); COCAINE NEG (NEG); MARIJUANA NEG (NEG); OPIATES POS (NEG); TRICYCLIC ANTIDEPRESSANTS NEG (NEG); U METHADONE NEG (NEG)
[2017-01-09 15:32] LABS: ARTERIAL BLD GAS O2 SATURATION 94.4 % (90.0-100.0); ARTERIAL BLOOD GAS ALLEN TEST NORMAL; ARTERIAL BLOOD GAS ART SITE ARTERIAL LINE; ARTERIAL BLOOD GAS CARBOXY HB 0.4 %sat (0.0-9.0); ARTERIAL BLOOD GAS DELIVERY VENT; ARTERIAL BLOOD GAS HCO3 23.8 mmol/L; ARTERIAL BLOOD GAS MET HB 0.8 %sat (0.0-2.0); ARTERIAL BLOOD GAS PCO2 61.8 mmHg (35.0-45.0); ARTERIAL BLOOD GAS PO2 85.1 mmHg (80.0-100); ARTERIAL BLOOD GAS VENT MODE AC; ARTERIAL BLOOD GAS pH 7.193 (7.350-7.450); ARTERIAL DRAW? YES
[2017-01-09 17:22] LABS: INR 1.4; PARTIAL THROMBOPLASTIN TIME 35.6 SECONDS (23.5-31.3); PROTHROMBIN TIME (PATIENT) 15.2 SECONDS (9.6-11.5)
[2017-01-09 17:24] LABS: BASOPHIL% 0.1 % (0-2.5); DIFF IND NO; HEMATOCRIT 41.5 % (38.0-50.0); HEMOGLOBIN 14.3 gm/dL (13.0-16.0); LYMPHOCYTE# 0.9 X10e3 (1.0-3.5); LYMPHOCYTE% 4.9 % (17.0-45.0); MEAN CELL VOLUME 86.8 FL (83-96); MEAN CORPUSCULAR HEMOGLOBIN 29.8 PG (28-34); MEAN CORPUSCULAR HGB CONC 34.4 g/dL (30-36); MEAN PLATELET VOLUME 7.2 FL (6.5-11.5); MONOCYTE# 1.1 X10e3 (0-1.0); MONOCYTE% 5.6 % (3.0-12.0); NEUTROPHIL# 16.7 X10e3 (1.5-7.1); NEUTROPHIL% 89.4 % (40-75); PLATELET COUNT 295 X10e3 (140-420); RED BLOOD COUNT 4.78 X10e (3.90-5.60); RED CELL DISTRIBUTION WIDTH 13.1 % (11.0-15.5); WHITE BLOOD COUNT 18.7 X10e3 (4.0-10.5)
[2017-01-09 18:06] LABS: BLOOD UREA NITROGEN 14 mg/dL (9-23); BUN/CREATININE RATIO 9.33; CARBON DIOXIDE 19 mmol/L (22-31); CHLORIDE 123 mmol/L (100-111); CK TOTAL 318 IU/L (36-174); CREATININE SERUM 1.5 mg/dL (0.6-1.4); GLOM FILT RATE Estimated ABOVE60 mL/min (>60); GLUCOSE FASTING 75 mg/dL (70-110); MAGNESIUM 1.1 mg/dL (1.6-3.0); PHOSPHOROUS 3.2 mg/dL (2.5-4.6); POTASSIUM 4.3 mmol/L (3.5-5.1); SODIUM 142 mmol/L (135-145)
[2017-01-09 18:12] LABS: CALCIUM SERUM 5.1 mg/dL (8.4-10.2)
[2017-01-09 18:30] LABS: %MB 3.4 % (0.0-4.0); MB 10.9 ng/ml
[2017-01-09 19:11] LABS: ARTERIAL BLOOD GAS HCO3 20.1 mmol/L; ARTERIAL BLOOD GAS MET HB 0.6 %sat (0.0-2.0)
[2017-01-09 19:15] LABS: ARTERIAL BLOOD GAS PCO2 52.2 mmHg (35.0-45.0); ARTERIAL BLOOD GAS pH 7.194 (7.350-7.450)
[2017-01-09 19:16] LABS: ARTERIAL BLOOD GAS ART SITE ARTERIAL LINE; ARTERIAL BLOOD GAS VENT MODE AC
[2017-01-09 19:32] LABS: %MB 3.8 % (0.0-4.0); MB 16.6 ng/ml
[2017-01-10 01:26] LABS: %MB 4.8 % (0.0-4.0)
[2017-01-10 04:14] LABS: ARTERIAL BLD GAS O2 SATURATION 99.9 % (90.0-100.0); ARTERIAL BLOOD GAS HCO3 23.2 mmol/L; ARTERIAL BLOOD GAS MET HB 0.7 %sat (0.0-2.0); ARTERIAL BLOOD GAS PCO2 45.2 mmHg (35.0-45.0); ARTERIAL BLOOD GAS pH 7.318 (7.350-7.450)
[2017-01-10 04:33] LABS: ARTERIAL BLOOD GAS ART SITE ARTERIAL LINE; ARTERIAL BLOOD GAS VENT MODE AC
[2017-01-10 06:08] LABS: BASOPHIL% 0.1 % (0-2.5); HEMATOCRIT 38.1 % (38.0-50.0); LYMPHOCYTE# 1.2 X10e3 (1.0-3.5); LYMPHOCYTE% 5.2 % (17.0-45.0); MEAN CELL VOLUME 86.1 FL (83-96); MEAN CORPUSCULAR HEMOGLOBIN 29.3 PG (28-34); MEAN CORPUSCULAR HGB CONC 34.1 g/dL (30-36); NEUTROPHIL# 21.4 X10e3 (1.5-7.1); NEUTROPHIL% 90.7 % (40-75); PLATELET COUNT 203 X10e3 (140-420); RED BLOOD COUNT 4.42 X10e (3.90-5.60); RED CELL DISTRIBUTION WIDTH 13.3 % (11.0-15.5); WHITE BLOOD COUNT 23.7 X10e3 (4.0-10.5)
[2017-01-10 06:11] LABS: DIFF IND NO
[2017-01-10 06:30] LABS: INR 1.3; PARTIAL THROMBOPLASTIN TIME 36.7 SECONDS (23.5-31.3); PROTHROMBIN TIME (PATIENT) 14.3 SECONDS (9.6-11.5)
[2017-01-10 06:46] LABS: ALBUMIN SERUM 2.8 g/dL (3.5-5.0); ALKALINE PHOSPHATASE 54 U/L (32-92); ALT (SGPT) 46 U/L (10-40); AST (SGOT) 50 U/L (10-42); BILIRUBIN,TOTAL 1.3 mg/dL (0.2-2.0); BLOOD UREA NITROGEN 18 mg/dL (9-23); BUN/CREATININE RATIO 16.36; CALCIUM SERUM 7.9 mg/dL (8.4-10.2); CARBON DIOXIDE 23 mmol/L (22-31); CHLORIDE 105 mmol/L (100-111); CK TOTAL 323 IU/L (36-174); CREATININE SERUM 1.1 mg/dL (0.6-1.4); GLOM FILT RATE Estimated ABOVE60 mL/min (>60); GLUCOSE FASTING 168 mg/dL (70-110); PHOSPHOROUS 3.4 mg/dL (2.5-4.6); PROTEIN TOTAL SERUM 5.4 g/dL (6.0-8.3); SODIUM 136 mmol/L (135-145)
[2017-01-10 07:05] LABS: %MB 6.5 % (0.0-4.0); MB 21.1 ng/ml
[2017-01-10 08:35] LABS: INFLUENZA A NEG (NEG); INFLUENZA B NEG (NEG)
[2017-01-10 11:59] LABS: ARTERIAL BLOOD GAS ALLEN TEST NORMAL; ARTERIAL BLOOD GAS ART SITE ARTERIAL LINE; ARTERIAL BLOOD GAS CARBOXY HB 0.3 %sat (0.0-9.0); ARTERIAL BLOOD GAS DELIVERY VENT; ARTERIAL BLOOD GAS HCO3 24.9 mmol/L; ARTERIAL BLOOD GAS PCO2 46.6 mmHg (35.0-45.0); ARTERIAL BLOOD GAS VENT MODE AC; ARTERIAL BLOOD GAS pH 7.336 (7.350-7.450); ARTERIAL DRAW? YES
[2017-01-11 05:15] LABS: ARTERIAL BLD GAS O2 SATURATION 93.8 % (90.0-100.0); ARTERIAL BLOOD GAS CARBOXY HB 0.6 %sat (0.0-9.0); ARTERIAL BLOOD GAS MET HB 0.9 %sat (0.0-2.0); ARTERIAL BLOOD GAS PCO2 43.2 mmHg (35.0-45.0); ARTERIAL BLOOD GAS pH 7.451 (7.350-7.450)
[2017-01-11 05:21] LABS: ARTERIAL BLOOD GAS ART SITE ARTERIAL LINE; ARTERIAL BLOOD GAS PO2 65.5 mmHg (80.0-100); ARTERIAL BLOOD GAS VENT MODE AC
[2017-01-11 07:48] LABS: BASOPHIL% 0.1 % (0-2.5); HEMATOCRIT 30.5 % (38.0-50.0); LYMPHOCYTE# 0.6 X10e3 (1.0-3.5); LYMPHOCYTE% 5.6 % (17.0-45.0); MEAN CELL VOLUME 85.8 FL (83-96); MEAN CORPUSCULAR HEMOGLOBIN 29.7 PG (28-34); MEAN CORPUSCULAR HGB CONC 34.6 g/dL (30-36); MEAN PLATELET VOLUME 7.2 FL (6.5-11.5); MONOCYTE# 0.5 X10e3 (0-1.0); MONOCYTE% 4.5 % (3.0-12.0); NEUTROPHIL# 9.9 X10e3 (1.5-7.1); NEUTROPHIL% 89.8 % (40-75); RED BLOOD COUNT 3.55 X10e (3.90-5.60); RED CELL DISTRIBUTION WIDTH 13.5 % (11.0-15.5)
[2017-01-11 08:14] LABS: HEMOGLOBIN 10.5 gm/dL (13.0-16.0)
[2017-01-11 08:17] LABS: DIFF IND YES; PLATELET COUNT 97 X10e3 (140-420)
[2017-01-11 08:20] LABS: PLATELET ESTIMATE DECREASED (NORMAL); RBC NORMAL YES
[2017-01-11 08:23] LABS: BLOOD UREA NITROGEN 17 mg/dL (9-23); BUN/CREATININE RATIO 18.88; CARBON DIOXIDE 28 mmol/L (22-31); CHLORIDE 108 mmol/L (100-111); CREATININE SERUM 0.9 mg/dL (0.6-1.4); GLOM FILT RATE Estimated ABOVE60 mL/min (>60); GLUCOSE FASTING 162 mg/dL (70-110); POTASSIUM 4.4 mmol/L (3.5-5.1); SODIUM 141 mmol/L (135-145)
[2017-01-11 22:25] LABS: ARTERIAL BLD GAS O2 SATURATION 96.7 % (90.0-100.0); ARTERIAL BLOOD GAS CARBOXY HB 0.5 %sat (0.0-9.0); ARTERIAL BLOOD GAS MET HB 0.8 %sat (0.0-2.0); ARTERIAL BLOOD GAS PCO2 45.1 mmHg (35.0-45.0); ARTERIAL BLOOD GAS PO2 89.2 mmHg (80.0-100); ARTERIAL BLOOD GAS pH 7.431 (7.350-7.450)
[2017-01-11 22:26] LABS: ARTERIAL DRAW? NO
[2017-01-11 22:27] LABS: ARTERIAL BLOOD GAS ART SITE ARTERIAL LINE; ARTERIAL BLOOD GAS VENT MODE AC
[2017-01-12 04:49] LABS: HEMOGLOBIN 10.1 gm/dL (13.0-16.0); LYMPHOCYTE# 0.5 X10e3 (1.0-3.5); LYMPHOCYTE% 5.3 % (17.0-45.0); MEAN CELL VOLUME 86.8 FL (83-96); MEAN CORPUSCULAR HEMOGLOBIN 30.3 PG (28-34); MEAN CORPUSCULAR HGB CONC 34.9 g/dL (30-36); MEAN PLATELET VOLUME 7.7 FL (6.5-11.5); MONOCYTE# 0.3 X10e3 (0-1.0); MONOCYTE% 3.2 % (3.0-12.0); NEUTROPHIL% 91.5 % (40-75); PLATELET COUNT 117 X10e3 (140-420); RED BLOOD COUNT 3.34 X10e (3.90-5.60); RED CELL DISTRIBUTION WIDTH 13.5 % (11.0-15.5); WHITE BLOOD COUNT 9.8 X10e3 (4.0-10.5)
[2017-01-12 04:50] LABS: DIFF IND NO
[2017-01-12 05:41] LABS: ARTERIAL BLD GAS O2 SATURATION 92.6 % (90.0-100.0); ARTERIAL BLOOD GAS CARBOXY HB 0.7 %sat (0.0-9.0); ARTERIAL BLOOD GAS HCO3 28.8 mmol/L; ARTERIAL BLOOD GAS PCO2 44.2 mmHg (35.0-45.0); ARTERIAL BLOOD GAS pH 7.423 (7.350-7.450)
[2017-01-12 05:50] LABS: ARTERIAL BLOOD GAS ALLEN TEST NORMAL; ARTERIAL BLOOD GAS ART SITE RIGHT BRACHIAL; ARTERIAL BLOOD GAS PO2 64.1 mmHg (80.0-100); ARTERIAL BLOOD GAS VENT MODE AC; ARTERIAL DRAW? YES
[2017-01-12 06:03] LABS: BLOOD UREA NITROGEN 22 mg/dL (9-23); CALCIUM SERUM 7.8 mg/dL (8.4-10.2); CARBON DIOXIDE 28 mmol/L (22-31); CHLORIDE 108 mmol/L (100-111); CREATININE SERUM 0.8 mg/dL (0.6-1.4); GLOM FILT RATE Estimated ABOVE60 mL/min (>60); GLUCOSE FASTING 162 mg/dL (70-110); POTASSIUM 4.3 mmol/L (3.5-5.1); SODIUM 141 mmol/L (135-145)
[2017-01-13 03:40] LABS: DIFF IND NO; HEMATOCRIT 31.6 % (38.0-50.0); HEMOGLOBIN 10.7 gm/dL (13.0-16.0); LYMPHOCYTE# 0.7 X10e3 (1.0-3.5); LYMPHOCYTE% 7.6 % (17.0-45.0); MEAN CELL VOLUME 88.5 FL (83-96); MEAN CORPUSCULAR HGB CONC 33.9 g/dL (30-36); MEAN PLATELET VOLUME 7.2 FL (6.5-11.5); MONOCYTE# 0.3 X10e3 (0-1.0); MONOCYTE% 2.9 % (3.0-12.0); NEUTROPHIL# 8.4 X10e3 (1.5-7.1); NEUTROPHIL% 89.5 % (40-75); PLATELET COUNT 146 X10e3 (140-420); RED BLOOD COUNT 3.57 X10e (3.90-5.60); RED CELL DISTRIBUTION WIDTH 13.3 % (11.0-15.5); WHITE BLOOD COUNT 9.4 X10e3 (4.0-10.5)
[2017-01-13 03:59] LABS: ARTERIAL BLD GAS O2 SATURATION 91.5 % (90.0-100.0); ARTERIAL BLOOD GAS CARBOXY HB 0.7 %sat (0.0-9.0); ARTERIAL BLOOD GAS HCO3 29.2 mmol/L; ARTERIAL BLOOD GAS MET HB 0.7 %sat (0.0-2.0); ARTERIAL BLOOD GAS PCO2 46.3 mmHg (35.0-45.0); ARTERIAL BLOOD GAS pH 7.407 (7.350-7.450)
[2017-01-13 04:01] LABS: BLOOD UREA NITROGEN 23 mg/dL (9-23); BUN/CREATININE RATIO 25.55; CALCIUM SERUM 8.1 mg/dL (8.4-10.2); CARBON DIOXIDE 29 mmol/L (22-31); CHLORIDE 105 mmol/L (100-111); CREATININE SERUM 0.9 mg/dL (0.6-1.4); GLOM FILT RATE Estimated ABOVE60 mL/min (>60); GLUCOSE FASTING 158 mg/dL (70-110); MAGNESIUM 2.1 mg/dL (1.6-3.0); POTASSIUM 3.9 mmol/L (3.5-5.1); SODIUM 140 mmol/L (135-145)
[2017-01-13 04:10] LABS: ARTERIAL BLOOD GAS PO2 65.3 mmHg (80.0-100)
[2017-01-13 04:11] LABS: ARTERIAL BLOOD GAS ART SITE LEFT BRACHIAL; ARTERIAL BLOOD GAS DELIVERY VENT; ARTERIAL BLOOD GAS VENT MODE AC; ARTERIAL DRAW? YES
[2017-01-13 17:13] LABS: HA AB IGM (HEPPAN) Nonreactive (Nonreactive); HB CORE AB IGM (HEPPAN) Nonreactive (Nonreactive); HB S AG (HEPPAN) Nonreactive (Nonreactive); HEP C AB (HEPPAN) Reactive (Nonreactive)
[2017-01-14 04:16] LABS: ARTERIAL BLD GAS O2 SATURATION 95.7 % (90.0-100.0); ARTERIAL BLOOD GAS CARBOXY HB 0.4 %sat (0.0-9.0); ARTERIAL BLOOD GAS HCO3 31.4 mmol/L; ARTERIAL BLOOD GAS MET HB 0.8 %sat (0.0-2.0); ARTERIAL BLOOD GAS PCO2 45.7 mmHg (35.0-45.0); ARTERIAL BLOOD GAS PO2 80.9 mmHg (80.0-100); ARTERIAL BLOOD GAS pH 7.446 (7.350-7.450)
[2017-01-14 04:20] LABS: ARTERIAL BLOOD GAS ART SITE LEFT BRACHIAL; ARTERIAL BLOOD GAS DELIVERY VENT; ARTERIAL BLOOD GAS VENT MODE AC; ARTERIAL DRAW? YES
[2017-01-14 04:26] LABS: HEMATOCRIT 29.7 % (38.0-50.0); LYMPHOCYTE% 9.2 % (17.0-45.0); MEAN CELL VOLUME 88.2 FL (83-96); MEAN CORPUSCULAR HEMOGLOBIN 29.7 PG (28-34); MEAN CORPUSCULAR HGB CONC 33.7 g/dL (30-36); MEAN PLATELET VOLUME 6.9 FL (6.5-11.5); MONOCYTE# 0.7 X10e3 (0-1.0); MONOCYTE% 6.1 % (3.0-12.0); NEUTROPHIL# 9.2 X10e3 (1.5-7.1); NEUTROPHIL% 84.7 % (40-75); PLATELET COUNT 187 X10e3 (140-420); RED BLOOD COUNT 3.37 X10e (3.90-5.60); RED CELL DISTRIBUTION WIDTH 13.2 % (11.0-15.5); WHITE BLOOD COUNT 10.9 X10e3 (4.0-10.5)
[2017-01-14 04:27] LABS: DIFF IND NO
[2017-01-14 04:47] LABS: BLOOD UREA NITROGEN 22 mg/dL (9-23); CALCIUM SERUM 8.1 mg/dL (8.4-10.2); CARBON DIOXIDE 31 mmol/L (22-31); CHLORIDE 109 mmol/L (100-111); CREATININE SERUM 0.8 mg/dL (0.6-1.4); GLOM FILT RATE Estimated ABOVE60 mL/min (>60); GLUCOSE FASTING 138 mg/dL (70-110); SODIUM 144 mmol/L (135-145)
[2017-01-15 04:17] LABS: ARTERIAL BLD GAS O2 SATURATION 97.7 % (90.0-100.0); ARTERIAL BLOOD GAS CARBOXY HB 0.3 %sat (0.0-9.0); ARTERIAL BLOOD GAS HCO3 30.8 mmol/L; ARTERIAL BLOOD GAS MET HB 0.6 %sat (0.0-2.0); ARTERIAL BLOOD GAS PCO2 44.6 mmHg (35.0-45.0); ARTERIAL BLOOD GAS pH 7.447 (7.350-7.450)
[2017-01-15 04:19] LABS: ARTERIAL BLOOD GAS ART SITE RIGHT BRACHIAL; ARTERIAL BLOOD GAS DELIVERY VENT; ARTERIAL BLOOD GAS VENT MODE AC; ARTERIAL DRAW? YES
[2017-01-15 04:38] LABS: BASOPHIL% 0.1 % (0-2.5); HEMATOCRIT 29.9 % (38.0-50.0); HEMOGLOBIN 10.6 gm/dL (13.0-16.0); LYMPHOCYTE# 0.7 X10e3 (1.0-3.5); MEAN CELL VOLUME 88.2 FL (83-96); MEAN CORPUSCULAR HEMOGLOBIN 31.2 PG (28-34); MEAN CORPUSCULAR HGB CONC 35.4 g/dL (30-36); MEAN PLATELET VOLUME 7.2 FL (6.5-11.5); MONOCYTE# 0.5 X10e3 (0-1.0); MONOCYTE% 6.7 % (3.0-12.0); NEUTROPHIL# 6.5 X10e3 (1.5-7.1); NEUTROPHIL% 84.2 % (40-75); PLATELET COUNT 192 X10e3 (140-420); RED BLOOD COUNT 3.39 X10e (3.90-5.60); RED CELL DISTRIBUTION WIDTH 13.2 % (11.0-15.5); WHITE BLOOD COUNT 7.8 X10e3 (4.0-10.5)
[2017-01-15 04:43] LABS: DIFF IND NO
[2017-01-15 05:04] LABS: BLOOD UREA NITROGEN 24 mg/dL (9-23); CALCIUM SERUM 8.1 mg/dL (8.4-10.2); CARBON DIOXIDE 31 mmol/L (22-31); CHLORIDE 108 mmol/L (100-111); CREATININE SERUM 0.8 mg/dL (0.6-1.4); GLOM FILT RATE Estimated ABOVE60 mL/min (>60); GLUCOSE FASTING 143 mg/dL (70-110); POTASSIUM 4.3 mmol/L (3.5-5.1); SODIUM 143 mmol/L (135-145)
[2017-01-16 04:05] LABS: ARTERIAL BLD GAS O2 SATURATION 97.5 % (90.0-100.0); ARTERIAL BLOOD GAS CARBOXY HB 0.3 %sat (0.0-9.0); ARTERIAL BLOOD GAS MET HB 0.7 %sat (0.0-2.0); ARTERIAL BLOOD GAS pH 7.398 (7.350-7.450)
[2017-01-16 04:07] LABS: ARTERIAL BLOOD GAS ART SITE LEFT BRACHIAL; ARTERIAL BLOOD GAS DELIVERY VENT; ARTERIAL BLOOD GAS PCO2 53.7 mmHg (35.0-45.0); ARTERIAL BLOOD GAS VENT MODE SIMV; ARTERIAL DRAW? YES
[2017-01-16 04:21] LABS: BLOOD UREA NITROGEN 24 mg/dL (9-23); CALCIUM SERUM 8.2 mg/dL (8.4-10.2); CARBON DIOXIDE 32 mmol/L (22-31); CHLORIDE 105 mmol/L (100-111); CREATININE SERUM 0.8 mg/dL (0.6-1.4); GLOM FILT RATE Estimated ABOVE60 mL/min (>60); GLUCOSE FASTING 128 mg/dL (70-110); POTASSIUM 4.3 mmol/L (3.5-5.1); SODIUM 141 mmol/L (135-145)
[2017-01-17 07:26] LABS: BASOPHIL% 0.1 % (0-2.5); EOSINOPHIL# 0.1 X10e3 (0-0.7); EOSINOPHIL% 0.6 % (0.0-7.0); HEMATOCRIT 34.7 % (38.0-50.0); HEMOGLOBIN 11.9 gm/dL (13.0-16.0); LYMPHOCYTE# 2.3 X10e3 (1.0-3.5); LYMPHOCYTE% 26.8 % (17.0-45.0); MEAN CELL VOLUME 86.9 FL (83-96); MEAN CORPUSCULAR HEMOGLOBIN 29.7 PG (28-34); MEAN CORPUSCULAR HGB CONC 34.2 g/dL (30-36); MEAN PLATELET VOLUME 7.4 FL (6.5-11.5); MONOCYTE# 0.8 X10e3 (0-1.0); MONOCYTE% 9.2 % (3.0-12.0); NEUTROPHIL# 5.5 X10e3 (1.5-7.1); NEUTROPHIL% 63.3 % (40-75); PLATELET COUNT 286 X10e3 (140-420); RED BLOOD COUNT 3.99 X10e (3.90-5.60); RED CELL DISTRIBUTION WIDTH 13.2 % (11.0-15.5); WHITE BLOOD COUNT 8.7 X10e3 (4.0-10.5)
[2017-01-17 07:39] LABS: DIFF IND NO
[2017-01-17 08:06] LABS: BLOOD UREA NITROGEN 20 mg/dL (9-23); CARBON DIOXIDE 26 mmol/L (22-31); CHLORIDE 106 mmol/L (100-111); CREATININE SERUM 0.8 mg/dL (0.6-1.4); GLOM FILT RATE Estimated ABOVE60 mL/min (>60); GLUCOSE FASTING 85 mg/dL (70-110); POTASSIUM 3.1 mmol/L (3.5-5.1); SODIUM 139 mmol/L (135-145)
== END 2017-01-17 17:40 | DRG 917 ==
LOC: CED 12:53 → CEDOF 13:25 → CICCU2 14:57 → C3A PCU 01-16 19:11
PROVIDERS: Emergency Medicine; Family Medicine; Internal Medicine; Internal Medicine Pulmonary Disease; Nurse Practitioner
PROC: 0BC68ZZ Extirpation of Matter from Right Lower Lobe Bronchus, Via Natural or Artificial Opening Endoscopic (ICD-10-PCS; 2017-01-09)
PROC: 03HB33Z Insertion of Infusion Device into Right Radial Artery, Percutaneous Approach (ICD-10-PCS; 2017-01-09)
PROC: 5A1955Z Respiratory Ventilation, Greater than 96 Consecutive Hours (ICD-10-PCS; 2017-01-09)
PROC: B246YZZ Ultrasonography of Right and Left Heart using Other Contrast (ICD-10-PCS; principal; 2017-01-09 16:51)
PROC: 0B998ZX Drainage of Lingula Bronchus, Via Natural or Artificial Opening Endoscopic, Diagnostic (ICD-10-PCS; 2017-01-09 16:51)
PROC: 0DH67UZ Insertion of Feeding Device into Stomach, Via Natural or Artificial Opening (ICD-10-PCS; 2017-01-10)
DX: T40.1X2A Poisoning by heroin, intentional self-harm, initial encounter (principal); J96.01 Acute respiratory failure with hypoxia; R65.21 Severe sepsis with septic shock; J69.0 Pneumonitis due to inhalation of food and vomit; A41.9 Sepsis, unspecified organism; I50.23 Acute on chronic systolic (congestive) heart failure; F11.20 Opioid dependence, uncomplicated; E87.2 Acidosis; J15.211 Pneumonia due to Methicillin susceptible Staphylococcus aureus; N39.0 Urinary tract infection, site not specified; N17.9 Acute kidney failure, unspecified; F13.20 Sedative, hypnotic or anxiolytic dependence, uncomplicated; F17.210 Nicotine dependence, cigarettes, uncomplicated; Z88.0 Allergy status to penicillin; R74.0 Nonspecific elevation of levels of transaminase and lactic acid dehydrogenase [LDH]; B19.20 Unspecified viral hepatitis C without hepatic coma; F31.9 Bipolar disorder, unspecified
CPT/HCPCS: 31500; 36415; 36600; 51702; 70450; 71010; 74000; 80048; 80053; 80074; 80076; 80202; 80307; 81003; 82308; 82550; 82553; 82803; 82947; 83605; 83735; 83880; 84100; 84484; 85025; 85610; 85730; 87040; 87070; 87077; 87086; 87102; 87106; 87116; 87186; 87205; 87206; 87522; 87633; 87804; 93005; 93306; 94002; 94003; 94640; 94760; 94761; 96361; 96365; 96367; 96368; 96375; 97161; 97165; 99291; C9113; G0480; J0171; J0295; J0330; J0610; J0696; J1265; J1650; J1815; J1940; J2250; J2920; J2930; J3010; J3370; J3475; J3490

== ENCOUNTER 2017-01-17 18:44 | Inpatient (IN) | payer OTHER ==
--- NOTE | ~2017-01-17 | PN ---
Unit #: [id number] #: [id number] Patient: DICKSON BENAVIDES [id number] [facility] [address] [place] [address] [id number] I MR#: [id number] NAME: DICKSON BENAVIDES ROOM: P207 Age: 21 Sex: M Admission Date: 01/17/2017 : 1995 Attending Physician: Елена Dixon M.D. Admitting Physician: Елена Dixon M.D. Primary Care Physician: Primary Care Physician Pura DAVE NOTES DATE OF SERVICE 01/18/2017 DISCUSSION Mr. Benavides is a 21-year-old white male who was seen today. Chart was reviewed and case was discussed with the staff. He has been anxious and withdrawn though has not shown any agitation or irritability and has been cooperative with treatment recommendations as he has been taking the medications and tolerating them fairly well. MENTAL STATUS EXAMINATION Young white male who is casually dressed with fair personal hygiene, appears to be in distress or discomfort. He was awake and alert with impaired attention and concentration. His mood is anxious with congruent affect. His speech is slow and restricted in content. Insight and judgment remain significantly impaired. TREATMENT PLAN 1. We will continue him on his current medications and treatment protocol. We will monitor his response to the medications and make further adjustments as needed. 2. We will continue to follow up. Dictated by... Lisha Boogie/beni TD: 01/19/2017 07:14 JOB #: [id number] [facility] PROGRESS NOTES X Елена Dixon MD PROGRESS NOTE
--- NOTE | ~2017-01-17 | PA ---
Unit #: [id number] #: [id number] Patient: DICKSON BENAVIDES [id number] [facility] [address] [place] [address] [id number] I MR#: [id number] NAME: DICKSON BENAVIDES ROOM: P207 Age: 21 Sex: M Admission Date: 01/17/2017 : 1995 Date of Assessment: 01/17/2017 Attending Physician: Елена Dixon M.D. Admitting Physician: Елена Dixon M.D. Primary Care Physician: Primary Care Physician No PSYCHIATRIC ASSESSMENT DATE OF SERVICE 01/17/2017. IDENTIFYING DATA Mr. Benavides is a 21-year-old single white male with history of mood disorder and substance abuse and dependence, who is known to me from previous encounter, and is a resident of [place], [place], and was transferred to us from [facility] on voluntary basis. CHIEF COMPLAINT "She upset me with got into it, pretty sure that is when I punched the door." HISTORY OF PRESENT ILLNESS Mr. Benavides is a 21-year-old white male, who was taken to the emergency room at [facility] by his mother Rajani Meyer, after the patient reports that he got upset and got into an argument and that he punched the door and his grandmother told him to get out and "she was lying to me, behind my back she was talking to other guys. I went home after my grandmother picked me up, and I called Harry Mcdonald and I was also upset because I thought I had hepatitis C too." The patient reports that all of this caused him to shoot up heroin and does not know if he did it intentionally or not; however, he went into opioid overdose and was unresponsive and was taken to the emergency room, was medically cleared and then was transferred to us. The patient stated that he had overdosed on Xanax about 2 years ago, but he could not recall any details about this. He does report increasing depression, anger, agitation, irritability, impulsivity, and violent outbursts, and being unsafe to himself and as such, recommendation for inpatient level of care was made and the patient was transferred to us. SUBSTANCE ABUSE HISTORY The patient has extensive history of substance abuse and dependence, started with cannabis at the age of 12 and since then, he has been in cannabis, alcohol, cocaine, acid, opioids, inhalants, and prescription medications, and more recently it appears that methamphetamine and heroin has been his drug of choice as reports that he has been using a quarter of a gram of methamphetamine and has been using IV heroin unknown amount as well. PAST PSYCHIATRIC HISTORY The patient has had history of inpatient psychiatric and chemical dependency treatment at [facility], at [facility] Unit #: [id number] #: [id number] Patient: [facility], and review of the medical records indicate that currently he is not active in any treatment program, is not seeing a psychiatrist, not taking any psychotropic medications. PAST MEDICAL HISTORY The patient's medical history is significant for hepatitis C. ALLERGIES No known medication allergies. PERSONAL AND SOCIAL HISTORY A 21-year-old white male, who reports that he is single, unemployed, and lives with his grandparents and has fairly decent social support system. MENTAL STATUS EXAMINATION Young white male who was casually dressed with fair personal hygiene, appears to be in no acute distress or discomfort. He was awake and alert on interaction with intact orientation to time, place, and person. His mood was anxious and depressed with a congruent affect. His speech was slow and goal directed. His thought processes were disorganized with some looseness of associations and flight of ideas and suicidal ideations. His insight and judgment remain significantly impaired. DIAGNOSTIC IMPRESSION Psychiatric: Major depressive disorder, recurrent, moderate, without psychotic features; opioid dependence, moderate and acute withdrawals; methamphetamine dependence, moderate. Medical: None. Stressors: Moderate psychosocial stressors. TREATMENT PLAN 1. The patient has presented with history of substance abuse and mood disorder, and has been decompensating and will need inpatient hospitalization for detoxification, safety, and stabilization. We will start him on detox protocol. We will closely monitor for any worsening withdrawal symptoms. 2. Supportive therapy was provided to the patient. ESTIMATED LENGTH OF STAY 5 to 7 days. ABILITY TO HELP SELF Limited. WILLINGNESS TO HELP SELF The patient appears to be willing to help self. STRENGTHS 1. Communicative. 2. Cooperative. PROBLEMS 1. Chronic dysphoric symptoms. 2. Chronic chemical dependency. 3. Poor social support system. DISCHARGE CRITERIA This will be contingent upon the patient's ability to go through detox without having any significant withdrawal symptoms as well as his ability Unit #: [id number] #: [id number] Patient: DICKSON BENAVIDES to stay safe to himself, particularly after discharge from the hospital. Dictated by... Lisha Boogie/inna TD: 01/19/2017 01:42 JOB #: [id number] PSYCHIATRIC ASSESSMENT X Елена Dixon MD PSYCHIATRIC ASSESSMENT
--- NOTE | ~2017-01-17 | DS ---
Unit #: [id number] #: [id number] Patient: [facility]IDES [id number] [facility] [address] [place] [address] [id number] I MR#: [id number] NAME: DICKSON BENAVIDES ROOM: P207 Age: 21 Sex: M Admission Date: 01/17/2017 : 1995 Discharge Date: 01/21/2017 Attending Physician: Елена Dixon M.D. Primary Care Physician: Primary Care Physician No DISCHARGE SUMMARY IDENTIFYING DATA Mr. Benavides is a 21-year-old single white male, who is known to me from previous encounter and is a resident of [place], [place], and was transferred to us from [facility]. DISCHARGE DIAGNOSES Psychiatric: Major depressive disorder, recurrent, moderate, without psychotic features; opioid dependence, moderate, in acute withdrawals; and methamphetamine dependence, moderate. Medical: None. Stressors: Moderate psychosocial stressors. HISTORY OF PRESENT ILLNESS Please see initial psychiatric evaluation for details. PAST PSYCHIATRIC HISTORY Please see initial psychiatric evaluation for details. PAST MEDICAL HISTORY Please see initial psychiatric evaluation for details. HOSPITAL COURSE The patient was admitted to the adult chemical dependency and psychiatric unit at [facility] and was oriented to the hospital environment. Routine p.r.n. medications were initiated, and he was started on a combination of Effexor and Risperdal to help with depression and psychosis, which was primarily related to his methamphetamine abuse and was closely monitored. He was taking the medications regularly and was tolerating them fairly well and was able to show a decent and therapeutic response and was willing to continue treatment on an outpatient basis and as such, it was decided that he will be discharged and will continue treatment. DISCHARGE MEDICATIONS Effexor XR 75 mg a day for depression and Risperdal 0.5 mg b.i.d. for psychosis. DISCHARGE CONDITION Stable. PROGNOSIS Fair. Unit #: [id number] #: [id number] Patient: DICKSON BENAVIDES Dictated by... Lisha Boogie/modl TD: 01/21/2017 17:21 JOB #: [id number] DISCHARGE SUMMARY X Елена Dixon MD DISCHARGE SUMMARY
--- NOTE | ~2017-01-17 | HP ---
Unit #: [id number] #: [id number] Patient: DICKSON DE JESUS [id number] [place] [address] [id number] I MR#: [id number] NAME: DICKSON DE JESUS ROOM: P207 Age: 21 Sex: M Admission Date: 01/17/2017 : 1995 Attending Physician: Елена Dixon M.D. Admitting Physician: Елена Dixon M.D. Primary Care Physician: Primary Care Physician No HISTORY AND PHYSICAL HISTORY OF PRESENT ILLNESS Dickson is a 21 year old admitted to [address] [place] [address] because of his illicit drug use. He shoots heroin. PAST MEDICAL HISTORY 1. Long history of illicit substance abuse to include IV heroin. 2. Hepatitis C. 3. Asthma. PAST SURGICAL HISTORY Nothing reported. ALLERGIES No known drug allergies. SOCIAL HISTORY Smokes 2 packs per day. Denies alcohol. Admits to a long history of poly-illicit substance abuse to include IV heroin. FAMILY HISTORY Medically noncontributory. REVIEW OF SYSTEMS CONSTITUTIONAL: No fever or chills. HEENT: Denies any sore throat, ear pain or runny nose. CARDIOVASCULAR: Denies chest pain, irregular heart rhythm or palpitations. CHEST: Denies shortness of breath or cough. No hemoptysis. GASTROINTESTINAL: Denies nausea, vomiting, diarrhea or chronic constipation. ENDOCRINE: Denies history of increased thirst or urination. No recent significant weight loss or gain. GENITOURINARY: Denies dysuria, frequency, or hematuria. SKIN: Denies any rashes. HEMATOLOGIC: Denies history of increased bleeding or bruising. MUSCULOSKELETAL: Denies any hot, swollen joints. No generalized muscle pain. NEUROLOGIC: Denies problems with vision or speech. No frequent, severe headaches. No numbness, tingling or weakness in any extremities. Denies loss of bladder or bowel control. CURRENT MEDICATIONS Detox protocol. Unit #: [id number] #: [id number] Patient: DICKSON DE JESUS PHYSICAL EXAMINATION GENERAL: Alert, well-nourished, no apparent distress. VITAL SIGNS: Blood pressure 100/56, heart rate 80, respirations 16, temperature 98.6. WEIGHT: 154. HEIGHT: 5 feet 6 inches. SKIN: Warm and dry without rash or lesion. HEENT: Normocephalic. TMs not viewed. Oral and nasal passages clear. Conjunctivae clear. PERRLA. EOMs intact. NECK: Supple without lymphadenopathy or thyromegaly. HEART: Regular rate and rhythm without murmur. LUNGS: Clear. ABDOMEN: Soft, nontender. : Not done. EXTREMITIES: No evidence of cyanosis, clubbing or edema. Moves all without focal deficit. NEUROLOGICAL: Grossly within normal limits. Cranial Nerves: II: Visual lombardi are intact. III, IV AND : Extraocular movements are intact. Pupils are equal, round and reactive to light. V: Facial sensation is grossly normal. VII: Facial movements and expression are normal. VIII: Auditory acuity grossly intact. IX, X: Uvula is midline. Phonation is normal. XI: Patient shrugs shoulders and turns head normally. XII: Tongue protrudes in the midline. Sensory and Motor Function: Sensory and motor sensation is grossly normal. Motor: moves all extremities well. Coordination: Gait is normal. Deep Tendon Reflexes: Intact. IMPRESSION Psychiatric admission. RECOMMENDATIONS PSYCHIATRIC: Per psychiatrist. MEDICAL: See no contraindications to participate in facility's activities. MEDICAL PROGNOSIS Good. MEDICAL CONDITION Stable. Dictated by... Asmita Barrios P.A.-C. for Lisha Jenkins/sergio TD: 01/18/2017 18:47 JOB #: [id number] Unit #: [id number] #: [id number] Patient: DICKSON DE JESUS HISTORY AND PHYSICAL X Asmita Barrios HISTORY AND PHYSICAL
--- NOTE | ~2017-01-17 | PN ---
Unit #: [id number] #: [id number] Patient: DICKSON BENAVIDES [id number] [facility] [address] [place] [address] [id number] I MR#: [id number] NAME: DICKSON BENAVIDES ROOM: P207 Age: 21 Sex: M Admission Date: 01/17/2017 : 1995 Attending Physician: Елена Dixon M.D. Admitting Physician: Елена Dixon M.D. Primary Care Physician: Primary Care Physician No COLLEENCE PROGRESS NOTES DATE OF SERVICE: 01/19/2017 SUBJECTIVE Mr. Benavides is a 21-year-old white male who was seen today and chart was reviewed, and case was discussed with the staff. He remains anxious, withdrawn, and seclusive to himself, though appears to be doing somewhat better than yesterday. Meanwhile, he has been taking medications and tolerating them fairly well. MENTAL STATUS EXAMINATION Young white male who was casually dressed with fair personal hygiene, and appears to be in no acute distress or discomfort. He was awake and alert on interaction with intact orientation. His mood was anxious with a congruent affect. He denies any suicidal or homicidal ideations. His insight and judgment remain slightly impaired. TREATMENT PLAN 1. We will continue him on his current treatment protocol. We will monitor his response and make further adjustments as needed. 2. We will continue to follow up. Dictated by... Lisha Boogie/inna TD: 01/20/2017 03:16 JOB #: [id number] [facility] PROGRESS NOTES X Елена Dixon MD PROGRESS NOTE
--- NOTE | ~2017-01-17 | PN ---
Unit #: [id number] #: [id number] Patient: DICKSON DE JESUS [id number] [facility] [address] [place] [address] [id number] MR#: [id number] NAME: DICKSON DE JESUS ROOM: P207 Age: 21 Sex: M Admission Date: 01/17/2017 : 1995 Attending Physician: Елена Dixon M.D. Admitting Physician: Елена Dixon M.D. Primary Care Physician: Primary Care Physician Pura GREENWOOD PROGRESS NOTES DATE OF SERVICE: 01/20/2017 SUBJECTIVE Mr. King is a 21-year-old white male with substance abuse and mood disorder, who was seen today and chart was reviewed and the case was discussed with the staff. He has been anxious, withdrawn, and rather seclusive to himself. Meanwhile, he has been cooperative with the treatment recommendations and has been taking the medications and tolerating them fairly well with no reported side effects. MENTAL STATUS EXAMINATION Young white male, who was casually dressed with a fair personal hygiene, appears to be in no acute distress or discomfort. He was awake and alert on interaction with intact orientation. His mood was anxious with a congruent affect. He denies any suicidal or homicidal ideations. His insight and judgment remain slightly impaired. TREATMENT PLAN 1. We will continue him on his current medications and treatment protocol. We will monitor his response to the medications and make further adjustments as needed. 2. We will continue to follow up. Dictated by... Lisha Boogie/inna TD: 01/20/2017 21:10 JOB #: [id number] COLLEEN PROGRESS NOTES X Елена Dixon MD PROGRESS NOTE
[2017-01-18 09:35] LABS: BASOPHIL% 0.1 % (0-2.5); EOSINOPHIL# 0.3 X10e3 (0-0.7); EOSINOPHIL% 3.3 % (0.0-7.0); HEMATOCRIT 39.3 % (38.0-50.0); HEMOGLOBIN 13.3 gm/dL (13.0-16.0); LYMPHOCYTE# 2.1 X10e3 (1.0-3.5); LYMPHOCYTE% 24.7 % (17.0-45.0); MEAN CELL VOLUME 86.2 FL (83-96); MEAN CORPUSCULAR HEMOGLOBIN 29.2 PG (28-34); MEAN CORPUSCULAR HGB CONC 33.8 g/dL (30-36); MEAN PLATELET VOLUME 6.4 FL (6.5-11.5); MONOCYTE# 0.6 X10e3 (0-1.0); MONOCYTE% 7.4 % (3.0-12.0); NEUTROPHIL# 5.5 X10e3 (1.5-7.1); NEUTROPHIL% 64.5 % (40-75); PLATELET COUNT 329 X10e3 (140-420); RED BLOOD COUNT 4.56 X10e (3.90-5.60); RED CELL DISTRIBUTION WIDTH 13.1 % (11.0-15.5); WHITE BLOOD COUNT 8.5 X10e3 (4.0-10.5)
[2017-01-18 09:45] LABS: DIFF IND NO
[2017-01-18 09:57] LABS: ALBUMIN SERUM 3.1 g/dL (3.5-5.0); ALKALINE PHOSPHATASE 43 U/L (32-92); ALT (SGPT) 30 U/L (10-40); AST (SGOT) 30 U/L (10-42); BLOOD UREA NITROGEN 19 mg/dL (9-23); BUN/CREATININE RATIO 23.75; CALCIUM SERUM 8.6 mg/dL (8.4-10.2); CARBON DIOXIDE 25 mmol/L (22-31); CHLORIDE 109 mmol/L (100-111); CREATININE SERUM 0.8 mg/dL (0.6-1.4); GLOM FILT RATE Estimated ABOVE60 mL/min (>60); GLUCOSE FASTING 120 mg/dL (70-110); POTASSIUM 4.3 mmol/L (3.5-5.1); PROTEIN TOTAL SERUM 5.6 g/dL (6.0-8.3); SODIUM 140 mmol/L (135-145)
[2017-01-18 09:59] LABS: THYROID STIMULATING HORMONE 1.76 uIU/ml (0.34-5.60)
[2017-01-18 10:06] LABS: FREE THYROXIN (T4) 1.35 ng/dL (0.58-1.64)
[2017-01-19 13:28] LABS: URINE APPEARANCE CLEAR; URINE BILIRUBIN NEG (NEG); URINE BLOOD NEG (NEG); URINE COLOR YELLOW; URINE GLUCOSE NEG (NEG); URINE KETONE NEG (NEG); URINE LEUKOCYTE ESTERASE NEG (NEG); URINE NITRATE NEG (NEG); URINE PH 6.5 (5-8); URINE PROTEIN NEG (NEG); URINE SPECIFIC GRAVITY 1.007 (1.003-1.035); URINE UROBILINOGEN 0.2 MG/DL (NEG)
[2017-01-19 13:39] LABS: AMPHETAMINE NEG (NEG); BARBITURATES NEG (NEG); BENZODIAZEPINES POS (NEG); COCAINE NEG (NEG); MARIJUANA NEG (NEG); OPIATES NEG (NEG); TRICYCLIC ANTIDEPRESSANTS NEG (NEG); U METHADONE NEG (NEG)
== END 2017-01-21 12:10 | disposition home or self-care (01) | DRG 885 ==
LOC: P2S 18:44
PROVIDERS: Psychiatry & Neurology Psychiatry
PROC: HZ2ZZZZ Detoxification Services for Substance Abuse Treatment (ICD-10-PCS; principal; 2017-01-17)
DX: F33.1 Major depressive disorder, recurrent, moderate (principal); F15.20 Other stimulant dependence, uncomplicated; F11.23 Opioid dependence with withdrawal; F17.210 Nicotine dependence, cigarettes, uncomplicated
CPT/HCPCS: 80053; 80307; 81003; 84439; 84443; 85025; 86592